=== PATIENT | female | born 1960 | race Caucasian/White ===

== ENCOUNTER 2019-01-28 05:59 | Day surgery (SDC) | payer MEDICAID ==
[2019-01-24 10:43] LABS: CLARITY,URINE CLEAR (Clear); COLOR,URINE YELLOW (Yellow); GLUCOSE, URINE NEGATIVE (Neg); KETONES,URINE NEGATIVE (Neg); LEUKOCYTE ESTERASE ,URINE NEGATIVE (Neg); NITRITES, URINE NEGATIVE (Neg); OCCULT BLOOD,URINE NEGATIVE (Neg); PROTEIN,URINE NEGATIVE (Neg); UROBILINOGEN,URINE 0.2 E.U/dL (0.2-1.0)
[2019-01-24 10:45] LABS: UA COLLECTION TYPE NON-SPECIFIED
[2019-01-24 10:46] LABS: BASOPHILS # (AUTO) 0.1 X10'3 (0-0.2); BASOPHILS % (AUTO) 1.1 % (0-1); EOSINOPHILS # (AUTO) 0.2 X10'3 (0-0.9); EOSINOPHILS % (AUTO) 2.3 % (0-6); LYMPHOCYTES # (AUTO) 1.8 X10'3 (1.1-4.8); LYMPHOCYTES % (AUTO) 24.6 % (21-51); MEAN CORPUSCULAR HEMOGLOBIN 30.9 PG (27.0-31.0); MEAN CORPUSCULAR HGB CONC 34.2 g/dL (33.0-36.5); MEAN CORPUSCULAR VOLUME 90.4 FL (78-98); MEAN PLATELET VOLUME 8.9 FL (7.4-10.4); MONOCYTES # (AUTO) 0.4 X10'3 (0-0.9); MONOCYTES % (AUTO) 5.7 % (2-12); NEUTROPHILS # (AUTO) 4.9 X10'3 (1.8-7.7); NEUTROPHILS % (AUTO) 66.3 % (42-75); PRE OP HEMATOCRIT 46.1 % (35.0-45.0); PRE OP HEMOGLOBIN 15.8 g/dL (12.0-16.0); PRE OP PLATELET COUNT 168 X10'3 (140-440); RED CELL DISTRIBUTION WIDTH 13.5 % (11.5-14.5)
[2019-01-24 10:58] LABS: ALBUMIN 3.7 G/DL (3.4-5.0); ALBUMIN/GLOBULIN RATIO 0.9 (1.1-1.5); ALKALINE PHOSPHATASE 75 IU/L (46-116); BLOOD UREA NITROGEN 13 MG/DL (7-18); BUN/CREATININE RATIO 15.7 (6.6-38.0); CALCIUM 9.5 MG/DL (8.5-10.1); CHLORIDE 102 MMOL/L (99-107); CREATININE 0.83 MG/DL (0.40-0.90); PRE OP ALT 22 U/L (30-65); PRE OP ANION GAP 7 (8-16); PRE OP AST 14 U/L (10-37); PRE OP BILIRUB, TOTAL 0.2 MG/DL (0.0-1.0); PRE OP GLUCOSE 172 MG/DL (70-104); PRE OP POTASSIUM 3.9 MMOL/L (3.4-5.1); PRE OP SODIUM 140 MMOL/L (135-145); TOTAL CARBON DIOXIDE 30.7 MMOL/L (24-32); TOTAL PROTEIN 7.6 G/DL (6.4-8.2); eGFR 71 ML/MIN
[2019-01-28] VITALS (11 sets, daily range): BP systolic 112–164; BP diastolic 54–97
[~2019-01-28] VITALS: Ht 170.2 cm; Wt 95.3 kg
[~2019-01-28 05:59] MED LIST: BECL7.3A INH; CLINDAmcin 900mg/NS 50ml IVPB 50 ML IV ONE; METF1000 PO; famotidine 20mg tablet PO ONE; ringers solution, lacted 1,000 ML IV SCH
[2019-01-28] MEDS ORDERED: iohexol 300 MG/1 ML 50ml polymer ONE (06:52)
[2019-01-28] MEDS ORDERED: albuterol 2.5 MG/3 ML nebule NEB ONE (08:20)
[2019-01-28] MEDS ORDERED: midazolam 2 mg/2 ml injection ONE (08:22)
[2019-01-28] MEDS ORDERED: fentaNYL/PF 50MCG/1 ML 2ML syringe ONE ×2 (08:22→09:06)
[2019-01-28] MEDS ORDERED: sevoflurane 250ml liquid IH ONE (08:50)
[2019-01-28] MEDS ORDERED: gentamicin inj 375 MG in normal saline 100ml IV soln 90.625 ML IV ONE (09:01)
[2019-01-28] MEDS ORDERED: BUPIVAcaine/PF 2.5mg/ml (0.25%) 10ml vial ONE (09:46)
--- NOTE | 2019-01-28 10:16 | NUR ---
Received from OR via NORMA, accompanied by Anesthesiologist DR GUERRERO and report given by Anesthesiolgist. PT DROWSY, DENIES PAIN, ABDOMEN W/3 LAP SITES W/BANDAIDS CDI, BILATERAL FOREARMS W/LIZBETH WRAP COVERING DRSG/INISION CDI. WARMING BLANKET APPLIED FOR TEMP OF 35.8. Addendum: 01/28/19 at 1038 by Moon Sykes RN Amended: Links added. Addendum: 01/28/19 at 1039 by Moon Sykes RN ERROR: LIZBETH WRAP COVERING DRSG/INCISION TO BILATERAL UPPER ARMS, CDI
[2019-01-28] MEDS ORDERED: ringers solution, lacted 1,000 ML IV SCH (10:44)
[2019-01-28] MEDS ORDERED: ondansetron/PF 4mg/2ml inj IV PRN (10:45)
[2019-01-28] MEDS ORDERED: morphine 4 MG/ML inj SYRINge IV PRN ×2 (10:45)
[2019-01-28] MEDS ORDERED: meperidine/PF 25mg/ml syringe IV PRN ×2 (10:45)
[2019-01-28] MEDS ORDERED: proCHLORperazine 10 MG/2 ml inj IV PRN (10:45)
[2019-01-28] MEDS ORDERED: ondansetron/PF 4mg/2ml inj ONE ×2 (10:45→10:55)
[2019-01-28] MEDS: meperidine/PF 25mg/ml syringe IV PRN ×2 (10:53→11:32)
[2019-01-28] MEDS ORDERED: propofol inj 20 ML IV ONE (10:55)
[2019-01-28] MEDS ORDERED: glycopyrrolate 0.2mg/ml inj ONE (10:55)
[2019-01-28] MEDS ORDERED: neostigmine methylsulfate 1 MG/ML 10ml vial ONE (10:55)
[2019-01-28] MEDS ORDERED: rocuronium 10mg/ml inj IV ONE (10:55)
[2019-01-28] MEDS ORDERED: LIDOcaine 2% (20mg/ml) 5ml vial ONE (10:55)
--- NOTE | 2019-01-28 11:36 | NUR ---
Report called to receiving nurse. Transferred via [facility] Belongings . Special Issues communicated to receiving nurse. AWAKE AND ORIENTED. VITALS STABLE. DRESSING DI. STATES PAIN IMPROVING. TO PAS AT THIS TIME.
--- NOTE | 2019-01-28 11:47 | NUR ---
Received report from Juan Luis HELLER from recovery. VSS CHARTED, LAP SITES X3 WITH KAREN OLIVAS. WILL CONTINUE TO MONITOR.
[2019-01-28] MEDS ORDERED: acetaminophen w/codeine (30MG) #3 tablet PO PRN ×2 (12:10)
--- NOTE | 2019-01-28 13:00 | NUR ---
PATIENT DC INSTRUCTIONS GIVEN, PATIENT VERBALIZED UNDERSTANDING. PIV DC'D, CATH TIP INTACT. PATIENT TO PERSONAL VEHICLE WITH ALL PERSONAL BELONGINGS.
== END 2019-01-28 13:00 | disposition home or self-care (01) ==
LOC: PAS 05:59
PROVIDERS: ATTEND Surgery
DX: K80.10 Calculus of gallbladder with chronic cholecystitis without obstruction (principal); D17.22 Benign lipomatous neoplasm of skin and subcutaneous tissue of left arm; D17.21 Benign lipomatous neoplasm of skin and subcutaneous tissue of right arm; I10 Essential (primary) hypertension; E11.9 Type 2 diabetes mellitus without complications; Z88.1 Allergy status to other antibiotic agents; Z88.0 Allergy status to penicillin; Z79.899 Other long term (current) drug therapy
CPT/HCPCS: 24075; 36415; 47562; 80053; 81003; 82948; 85025; 93005; 94640; 94760; J1580; J2001; J2175; J2250; J2405; J2704; J2710; J3010; J3490; J7120; Q9967; A6251; A6449; A7000; J7030

== ENCOUNTER → 2019-02-08 | Emergency (ER) | payer MEDICAID ==
[~2019-02-08] VITALS: Ht 170.2 cm; Wt 96.0 kg
[~2019-02-08] MED LIST changes: -CLINDAmcin 900mg/NS 50ml IVPB 50 ML IV ONE; +MESSAGE TO NURSING PO NR; +METF-950 PO; +OMEP20CA10 PO; +ONDA4TAB6 PO; -famotidine 20mg tablet PO ONE; +famotidine/PF 10 mg/ml inj IV ONE; +iohexol 300mg/ml 100ml inj. ONE; +normal saline 1000ML IV soln IVB ONE; +pantoprazole 40 MG vial IV ONE; -ringers solution, lacted 1,000 ML IV SCH
--- NOTE | 2019-02-08 14:23 | NUR ---
ekg 1415
[2019-02-08 15:05] LABS: BASOPHILS # (AUTO) 0.1 X10'3 (0-0.2); BASOPHILS % (AUTO) 1.1 % (0-1); EOSINOPHILS # (AUTO) 0.2 X10'3 (0-0.9); EOSINOPHILS % (AUTO) 2.6 % (0-6); HEMATOCRIT 44.6 % (35.0-45.0); HEMOGLOBIN 15.2 g/dl (12.0-16.0); LYMPHOCYTES # (AUTO) 1.7 X10'3 (1.1-4.8); LYMPHOCYTES % (AUTO) 21.8 % (21-51); MEAN CORPUSCULAR HGB CONC 34.1 g/dL (33.0-36.5); MEAN CORPUSCULAR VOLUME 90.9 FL (78-98); MEAN PLATELET VOLUME 8.9 FL (7.4-10.4); MONOCYTES # (AUTO) 0.4 X10'3 (0-0.9); MONOCYTES % (AUTO) 4.9 % (2-12); NEUTROPHILS # (AUTO) 5.5 X10'3 (1.8-7.7); NEUTROPHILS % (AUTO) 69.6 % (42-75); PLATELET COUNT 176 X10'3 (140-440); RED CELL DISTRIBUTION WIDTH 13.5 % (11.5-14.5); WHITE BLOOD COUNT 7.9 X10'3 (4.5-11.0)
[2019-02-08 15:24] LABS: ALANINE AMINOTRANSFERASE 52 U/L (12-78); ALBUMIN 3.5 G/DL (3.4-5.0); ALBUMIN/GLOBULIN RATIO 0.9 (1.1-1.5); ALKALINE PHOSPHATASE 89 IU/L (46-116); ANION GAP 10 (8-16); ASPARTATE AMINO TRANSFERASE 76 U/L (10-37); BILIRUBIN,TOTAL 0.5 MG/DL (0.1-1.0); BLOOD UREA NITROGEN 13 MG/DL (7-18); BUN/CREATININE RATIO 14.3 (6.6-38.0); CALCIUM 9.2 MG/DL (8.5-10.1); CHLORIDE 104 MMOL/L (99-107); CREATININE 0.91 MG/DL (0.40-0.90); GLUCOSE 175 MG/DL (70-104); POTASSIUM 3.6 MMOL/L (3.5-5.1); SODIUM 141 MMOL/L (135-145); TOTAL CARBON DIOXIDE 27.1 MMOL/L (24-32); TOTAL PROTEIN 7.3 G/DL (6.4-8.2); eGFR 63 ML/MIN
[2019-02-08 15:32] LABS: LIPASE 227 U/L (73-393); MAGNESIUM 1.8 MG/DL (1.5-2.4)
[2019-02-08 17:50] VITALS: BP 151/72
== END | disposition home or self-care (01) ==
LOC: ER 14:14
DX: R10.13 Epigastric pain (principal); R10.11 Right upper quadrant pain; Z90.49 Acquired absence of other specified parts of digestive tract; Z88.0 Allergy status to penicillin; Z88.2 Allergy status to sulfonamides
CPT/HCPCS: 36415; 71045; 74177; 80053; 83690; 83735; 83880; 84484; 85025; 93005; 96374; 96375; 99284; C9113; J3490; J7030; Q9967

== ENCOUNTER 2019-08-12 19:36 | Emergency (ER) | payer MEDICAID ==
[~2019-08-12] VITALS: Ht 167.6 cm; Wt 79.4 kg
[~2019-08-12 19:36] MED LIST changes: -MESSAGE TO NURSING PO NR; -METF1000 PO; -OMEP20CA10 PO; +OMEP20CA11 PO; -famotidine/PF 10 mg/ml inj IV ONE; -iohexol 300mg/ml 100ml inj. ONE; -normal saline 1000ML IV soln IVB ONE; -pantoprazole 40 MG vial IV ONE
[2019-08-12 20:16] LABS: BASOPHILS % (AUTO) 0.4 % (0-1); EOSINOPHILS # (AUTO) 0.1 X10'3 (0-0.9); EOSINOPHILS % (AUTO) 0.6 % (0-6); HEMATOCRIT 41.1 % (35.0-45.0); LYMPHOCYTES # (AUTO) 0.4 X10'3 (1.1-4.8); LYMPHOCYTES % (AUTO) 4.7 % (21-51); MEAN CORPUSCULAR HEMOGLOBIN 31.2 PG (27.0-31.0); MEAN CORPUSCULAR VOLUME 91.9 FL (78-98); MEAN PLATELET VOLUME 8.8 FL (7.4-10.4); MONOCYTES # (AUTO) 0.1 X10'3 (0-0.9); NEUTROPHILS # (AUTO) 7.8 X10'3 (1.8-7.7); NEUTROPHILS % (AUTO) 93.3 % (42-75); PLATELET COUNT 128 X10'3 (140-440); RED BLOOD COUNT 4.47 X10'6 (4.20-5.60); RED CELL DISTRIBUTION WIDTH 13.8 % (11.5-14.5); WHITE BLOOD COUNT 8.3 X10'3 (4.5-11.0)
[2019-08-12 20:28] LABS: ALANINE AMINOTRANSFERASE 27 U/L (12-78); ALBUMIN 3.5 G/DL (3.4-5.0); ALKALINE PHOSPHATASE 64 IU/L (46-116); ANION GAP 11 (8-16); ASPARTATE AMINO TRANSFERASE 15 U/L (10-37); BILIRUBIN,TOTAL 0.5 MG/DL (0.1-1.0); BLOOD UREA NITROGEN 13 MG/DL (7-18); CALCIUM 8.8 MG/DL (8.5-10.1); CHLORIDE 102 MMOL/L (99-107); CREATININE 1.08 MG/DL (0.40-0.90); GLUCOSE 160 MG/DL (70-104); POTASSIUM 4.2 MMOL/L (3.5-5.1); SODIUM 138 MMOL/L (135-145); TOTAL CARBON DIOXIDE 25.2 MMOL/L (24-32); TOTAL PROTEIN 6.9 G/DL (6.4-8.2); eGFR 52 ML/MIN
[2019-08-12] MEDS ORDERED: morphine 4 MG/ML inj SYRINge IV ONE ×2 (20:50→22:15)
[2019-08-12] MEDS ORDERED: ketorolac tromethamine 15mg/ml inj. IV ONE (20:50)
[2019-08-12] MEDS ORDERED: ondansetron/PF 4mg/2ml inj IV ONE (20:50)
[2019-08-12] MEDS ORDERED: ketorolac trometh. 30mg/ml inj. IV ONE (20:50)
[2019-08-12 21:55] LABS: CLARITY,URINE CLEAR (Clear); COLOR,URINE YELLOW (Yellow); GLUCOSE, URINE NEGATIVE (Neg); KETONES,URINE NEGATIVE (Neg); LEUKOCYTE ESTERASE ,URINE MODERATE (Neg); NITRITES, URINE NEGATIVE (Neg); OCCULT BLOOD,URINE TRACE-INTACT (Neg); PH,URINE 6.5 (4.8-8.0); PROTEIN,URINE NEGATIVE (Neg); UROBILINOGEN,URINE 0.2 E.U/dL (0.2-1.0)
[2019-08-12 21:57] LABS: UA COLLECTION TYPE NON-SPECIFIED
[2019-08-12 22:01] LABS: BACTERIA,URINE FEW /HPF (Neg); RBC,URINE NONE SEEN /HPF (0-2)
[2019-08-12 22:02] LABS: SQUAMOUS EPITHELIAL CELL,UR FEW /LPF (FEW)
[2019-08-12 22:36] LABS: LIPASE 339 U/L (73-393)
[2019-08-12] MEDS ORDERED: CefTRIAXone/D5W-Rocephin 1gm 50 ML IV ONE (23:05)
[2019-08-12 23:17] VITALS: BP 126/70
[2019-08-13] MEDS ORDERED: ONDA4TAB6 PO (00:07)
[2019-08-13] MEDS ORDERED: CEPH500C5 PO (00:07)
[2019-08-13] MEDS ORDERED: HYDR-3965 PO (00:07)
[2019-08-13] MEDS ORDERED: ondansetron/PF 4mg/2ml inj IV ONE (00:20)
[2019-08-13] MEDS ORDERED: HYDR25TA4 PO (12:45)
[2019-08-13] MEDS ORDERED: CEPH500C2 PO (12:47)
[2019-08-13] MEDS ORDERED: NO HOME MEDS (13:11)
== END 2019-08-13 00:29 | disposition home or self-care (01) ==
LOC: ER 19:36
DX: N20.0 Calculus of kidney (principal); N39.0 Urinary tract infection, site not specified; F17.200 Nicotine dependence, unspecified, uncomplicated; Z90.49 Acquired absence of other specified parts of digestive tract; Z79.899 Other long term (current) drug therapy; Z88.0 Allergy status to penicillin; Z88.2 Allergy status to sulfonamides
CPT/HCPCS: 36415; 74176; 80053; 81001; 83605; 83690; 85025; 87040; 87077; 87088; 87186; 96365; 96375; 96376; 99284; J0696; J1885; J2270; J2405

== ENCOUNTER 2019-08-13 07:34 | Inpatient (IN) | payer MEDICAID ==
[~2019-08-13] VITALS: Ht 167.6 cm; Wt 98.2 kg
[~2019-08-13 07:34] MED LIST changes: +CEPH500C5 PO; +HYDR-3965 PO
--- NOTE | 2019-08-13 07:40 | NUR ---
PT ATTEMPTED TO PROVIDE URINE SAMPLE IN RAP AREA BATHROOM BUT UNABLE TO PROVIDE.
[2019-08-13 08:30] LABS: ALANINE AMINOTRANSFERASE 55 U/L (12-78); ALBUMIN 3.2 G/DL (3.4-5.0); ALBUMIN/GLOBULIN RATIO 0.9 (1.1-1.5); ALKALINE PHOSPHATASE 59 IU/L (46-116); ANION GAP 10 (8-16); ASPARTATE AMINO TRANSFERASE 44 U/L (10-37); BILIRUBIN,TOTAL 0.6 MG/DL (0.1-1.0); BLOOD UREA NITROGEN 15 MG/DL (7-18); BUN/CREATININE RATIO 12.8 (6.6-38.0); CALCIUM 8.3 MG/DL (8.5-10.1); CHLORIDE 101 MMOL/L (99-107); CREATININE 1.17 MG/DL (0.40-0.90); GLUCOSE 188 MG/DL (70-104); LIPASE 107 U/L (73-393); POTASSIUM 4.3 MMOL/L (3.5-5.1); SODIUM 137 MMOL/L (135-145); TOTAL CARBON DIOXIDE 26.1 MMOL/L (24-32); TOTAL PROTEIN 6.7 G/DL (6.4-8.2); eGFR 48 ML/MIN
[2019-08-13 08:44] LABS: BASOPHILS # (AUTO) 0.1 X10'3 (0-0.2); BASOPHILS % (AUTO) 0.4 % (0-1); EOSINOPHILS % (AUTO) 0 % (0-6); HEMATOCRIT 40.2 % (35.0-45.0); HEMOGLOBIN 13.6 g/dl (12.0-16.0); LYMPHOCYTES # (AUTO) 0.4 X10'3 (1.1-4.8); LYMPHOCYTES % (AUTO) 2.8 % (21-51); MEAN CORPUSCULAR HEMOGLOBIN 31.2 PG (27.0-31.0); MEAN CORPUSCULAR HGB CONC 33.8 g/dL (33.0-36.5); MEAN CORPUSCULAR VOLUME 92.3 FL (78-98); MEAN PLATELET VOLUME 9.7 FL (7.4-10.4); MONOCYTES # (AUTO) 0.3 X10'3 (0-0.9); MONOCYTES % (AUTO) 2.5 % (2-12); NEUTROPHILS # (AUTO) 12.2 X10'3 (1.8-7.7); NEUTROPHILS % (AUTO) 94.3 % (42-75); PLATELET COUNT 104 X10'3 (140-440); RED BLOOD COUNT 4.35 X10'6 (4.20-5.60); RED CELL DISTRIBUTION WIDTH 13.9 % (11.5-14.5)
[2019-08-13] MEDS ORDERED: metoclopramide 5 mg/ml inj IV ONE (09:15)
[2019-08-13] MEDS ORDERED: normal saline 1000ML IV soln IVB ONE (09:15)
[2019-08-13] MEDS ORDERED: diphenhydrAMINE 50 mg/ml inj IV ONE (09:15)
[2019-08-13] MEDS ORDERED: pantoprazole 40 MG vial IV ONE (09:20)
[2019-08-13 09:46] LABS: CLARITY,URINE CLOUDY (Clear); COLOR,URINE YELLOW (Yellow); GLUCOSE, URINE NEGATIVE (Neg); KETONES,URINE NEGATIVE (Neg); LEUKOCYTE ESTERASE ,URINE MODERATE (Neg); NITRITES, URINE NEGATIVE (Neg); OCCULT BLOOD,URINE SMALL (Neg); PROTEIN,URINE 30 mg/dl (Neg); UROBILINOGEN,URINE 0.2 E.U/dL (0.2-1.0)
[2019-08-13 09:49] LABS: UA COLLECTION TYPE NON-SPECIFIED
[2019-08-13 09:54] LABS: SQUAMOUS EPITHELIAL CELL,UR MANY /LPF (FEW)
[2019-08-13 09:55] LABS: WBC,URINE TNTC /HPF (0-4)
[2019-08-13] MEDS ORDERED: CefTRIAXone/D5W-Rocephin 1gm 50 ML IV ONE (09:55)
[2019-08-13 09:56] LABS: BACTERIA,URINE 3+ /HPF (Neg); RBC,URINE 0-2 /HPF (0-2)
[2019-08-13 09:58] LABS: WBC CLUMPS,URINE FEW /HPF (NEGATIVE)
--- NOTE | 2019-08-13 10:26 | NUR ---
PT TO CT VIA [facility]
--- NOTE | 2019-08-13 10:39 | NUR ---
PT SLEEPING LAYING ON HER LEFT SIDE, RESPIRATIONS EVEN AND UNLABORED NO DISTRESS NOTED AT THIS TIME.
--- NOTE | 2019-08-13 10:50 | NUR ---
TELE NEURO HAS BEEN INITIATED.
--- NOTE | 2019-08-13 11:43 | NUR ---
TELE NEURO CONSULT IN PROCESS
[2019-08-13] MEDS ORDERED: aspirin 81mg tab.chew PO ONE ×2 (12:10→15:40)
[2019-08-13] MEDS ORDERED: HYDR25TA4 PO (12:45)
[2019-08-13] MEDS ORDERED: CEPH500C2 PO (12:47)
[2019-08-13] MEDS ORDERED: NO HOME MEDS (13:11)
--- NOTE | 2019-08-13 13:11 | NUR ---
PT TO MRI
--- NOTE | 2019-08-13 13:44 | NUR ---
PT BACK MRI
--- NOTE | 2019-08-13 14:45 | NUR ---
IMAGES SHARED TO [facility], DR. MARTINI WILL REVIEW THEM
[2019-08-13] MEDS ORDERED: normal saline 1000ml 1,000 ML IV SCH (16:01)
[2019-08-13] MEDS ORDERED: potassium Cl 20 mEq SR tablet PO PRN ×2 (16:05)
[2019-08-13] MEDS ORDERED: morphine 2 MG/ML inj. syringe IV PRN (16:05)
[2019-08-13] MEDS ORDERED: ondansetron/PF 4mg/2ml inj IV PRN (16:05)
[2019-08-13] MEDS ORDERED: magnesium 2GM in 50ml NS 50 ML IV PRN (16:05)
[2019-08-13] MEDS ORDERED: potassium CL 10mEq/100ml bag 100 ML IV PRN ×2 (16:05)
[2019-08-13] MEDS ORDERED: magnesium 4gm in 100ml NS 100 ML IV PRN (16:05)
[2019-08-13] MEDS ORDERED: magnesium Cl slow-release 64mg tablet PO PRN (16:05)
[2019-08-13] MEDS: levoFLOXACIN-Levaquin 500mg/D5 100 ML IV SCH (17:12)
--- NOTE | 2019-08-13 18:53 | NUR ---
Patient in room . I have received report from ARRON Suh and had the opportunity to ask questions and assume patient care.
[2019-08-13] MEDS ORDERED: LORazepam 2 mg/ml vial IV ONE (18:55)
[2019-08-13 19:19] VITALS: BP 132/55
[2019-08-13] MEDS: normal saline 1000ml 1,000 ML IV SCH (21:31)
[2019-08-13 22:00] VITALS: BP 117/45
[2019-08-14] VITALS (19 sets, daily range): BP systolic 124–173; BP diastolic 49–80
[2019-08-14] MEDS ORDERED: LORazepam 2 mg/ml vial IV PRN (03:10)
[2019-08-14 06:26] LABS: BASOPHILS % (AUTO) 0.7 % (0-1); EOSINOPHILS % (AUTO) 0.7 % (0-6); HEMOGLOBIN 12.4 g/dl (12.0-16.0); LYMPHOCYTES # (AUTO) 0.9 X10'3 (1.1-4.8); LYMPHOCYTES % (AUTO) 13.5 % (21-51); MEAN CORPUSCULAR HEMOGLOBIN 31.3 PG (27.0-31.0); MEAN CORPUSCULAR HGB CONC 33.5 g/dL (33.0-36.5); MEAN CORPUSCULAR VOLUME 93.3 FL (78-98); MEAN PLATELET VOLUME 9.7 FL (7.4-10.4); MONOCYTES # (AUTO) 0.4 X10'3 (0-0.9); MONOCYTES % (AUTO) 5.8 % (2-12); NEUTROPHILS # (AUTO) 5.1 X10'3 (1.8-7.7); NEUTROPHILS % (AUTO) 79.3 % (42-75); PLATELET COUNT 78 X10'3 (140-440); RED BLOOD COUNT 3.97 X10'6 (4.20-5.60); RED CELL DISTRIBUTION WIDTH 13.8 % (11.5-14.5); WHITE BLOOD COUNT 6.5 X10'3 (4.5-11.0)
--- NOTE | 2019-08-14 06:30 | NUR ---
i HAVE RECEIVED PATIENT REPORT FROM DAVID HELLER
--- NOTE | 2019-08-14 06:39 | NUR ---
Patient in room ORTHO 4007. I have received report from Anabela HELLER and had the opportunity to ask questions and assume patient care.
--- NOTE | 2019-08-14 06:43 | NUR ---
Problems reprioritized. Patient report given, questions answered & plan of care reviewed with ARRON Nunes.
[2019-08-14] MEDS: budesonide 0.5mg/2ml UD nebule IH SCH ×2 (07:04→20:57)
[2019-08-14 07:10] LABS: ALBUMIN 2.5 G/DL (3.4-5.0); ANION GAP 7 (8-16); BLOOD UREA NITROGEN 8 MG/DL (7-18); BUN/CREATININE RATIO 9.2 (6.6-38.0); CALCIUM 8.1 MG/DL (8.5-10.1); CHLORIDE 108 MMOL/L (99-107); CHOL/HDL RATIO 7.2 (0.00-4.99); CHOLESTEROL 208 MG/DL (0-200); CREATININE 0.87 MG/DL (0.40-0.90); GLUCOSE 155 MG/DL (70-104); HDL CHOLESTEROL 29 MG/DL (35-60); LDL CHOLESTEROL 139 MG/DL (50-100); MAGNESIUM 1.9 MG/DL (1.5-2.4); POTASSIUM 4.3 MMOL/L (3.5-5.1); SODIUM 140 MMOL/L (135-145); TOTAL CARBON DIOXIDE 24.8 MMOL/L (24-32); TRIGLYCERIDES 161 MG/DL (20-135); eGFR 67 ML/MIN
[2019-08-14] MEDS: normal saline 1000ml 1,000 ML IV SCH ×3 (07:21→21:34)
[2019-08-14] MEDS: levoFLOXACIN-Levaquin 500mg/D5 100 ML IV SCH (07:49)
[2019-08-14] MEDS: HYDROchlorothiazide 25mg tablet PO SCH (07:49)
[2019-08-14] MEDS: K and/or MAG REPLACEMENT MC SCH (08:00)
[2019-08-14] MEDS ORDERED: phenylephrine inj 20 MG in normal saline 250ml IV soln 250 ML IV PRN (11:55)
[2019-08-14] MEDS ORDERED: nitroGLYCERIN-Tridil 50MG/D5W 250 ML IV PRN (11:55)
--- NOTE | 2019-08-14 12:03 | NUR ---
Problems reprioritized. Patient report given, questions answered & plan of care reviewed with Anabela HELLER.
--- NOTE | 2019-08-14 12:28 | NUR ---
PATIENT REPORT GIVEN TO MORIS HELLERMUD TRUCKER
[2019-08-14] MEDS ORDERED: LIDOcaine 1% (10mg/ml) 2ml vial ONE (12:30)
[2019-08-14] MEDS ORDERED: heparin 10,000 units/1 ML INJ ONE (12:50)
[2019-08-14 13:42] LABS: HEMOGLOBIN A1C 7.1 % (4.5-6.2)
[2019-08-14] MEDS ORDERED: LIDOcaine 1% 30ml preserv. free vial ONE (13:48)
[2019-08-14] MEDS ORDERED: midazolam 2 mg/2 ml injection ONE (13:53)
[2019-08-14] MEDS ORDERED: fentaNYL/PF 50MCG/1 ML 2ML syringe ONE ×2 (13:53→15:23)
[2019-08-14] MEDS ORDERED: hydrALAZINE 20mg/ml inj. IV PRN (14:05)
[2019-08-14] MEDS ORDERED: ringers solution, lacted 1,000 ML IV SCH (14:05)
[2019-08-14] MEDS ORDERED: fentaNYL/PF 50MCG/1 ML 2ML syringe IV PRN ×2 (14:05)
[2019-08-14] MEDS ORDERED: labetalol 20mg/4ml (5mg/ml) syringe IV PRN (14:05)
[2019-08-14] MEDS ORDERED: nitroPRUSSIDE in NS 100 ML IV SCH (14:05)
[2019-08-14] MEDS ORDERED: ondansetron/PF 4mg/2ml inj IV PRN (14:05)
[2019-08-14] MEDS ORDERED: phenylephrine inj 20 MG in normal saline 250ml IV soln 248 ML IV SCH (14:05)
[2019-08-14] MEDS ORDERED: morphine 4 MG/ML inj SYRINge IV PRN ×2 (14:05)
[2019-08-14] MEDS ORDERED: dexamethasone sod phosphate 10mg/ml inj ONE (14:10)
[2019-08-14] MEDS ORDERED: sevoflurane 250ml liquid IH ONE (14:10)
[2019-08-14] MEDS ORDERED: nitroPRUSSIDE 20mg/NS 100mL (0.2mg/mL) VIAL IV ONE (14:10)
[2019-08-14] MEDS ORDERED: propofol inj 20 ML IV ONE (14:12)
[2019-08-14] MEDS ORDERED: LIDOcaine 2% (20mg/ml) 5ml vial ONE (14:12)
[2019-08-14] MEDS ORDERED: heparin 1,000unit/ml 10ml vial 10 ML ONE (14:51)
[2019-08-14] MEDS ORDERED: ondansetron/PF 4mg/2ml inj ONE (15:02)
[2019-08-14] MEDS ORDERED: neostigmine methylsulfate 1 MG/ML 10ml vial ONE (15:04)
[2019-08-14] MEDS ORDERED: glycopyrrolate 0.2mg/ml inj ONE (15:04)
[2019-08-14] MEDS ORDERED: labetalol 20mg/4ml (5mg/ml) syringe IV ONE (15:34)
--- NOTE | 2019-08-14 16:27 | NUR ---
DM Consult: A1C 7.1; pt s/p endarterectomy and will need DM ed once stable post-op. Addendum: 08/14/19 at [address] Amended: Links added.
--- NOTE | 2019-08-14 16:43 | NUR ---
Patient coming to CICU 2016. I have received report from Maurice HELLER and had the opportunity to ask questions and assume patient care.
--- NOTE | 2019-08-14 16:50 | NUR ---
ALL CRITERIA FOR TRANSFER TO THE FLOOR HAS BEEN ACHIEVED. VSS. BED LOW, CALL LIGHT AND VS. SET IN PLACE. RN PRESENT TO ACCEPT CARE. PATIENT RESTING COMFORTABLY IN BED. BELONGINGS SENT WITH PATIENT. DRESSINGS CDI. ARRON CAUSEY PRESENT TO ACCEPT CARE. Addendum: 08/14/19 at 1658 by Maurice Burr RN, RN Amended: Links added.
[2019-08-14] MEDS: nitroPRUSSIDE in NS 100 ML IV PRN ×4 (17:10→22:56)
[2019-08-14] MEDS ORDERED: naloxone 0.4 mg/ml inj IV PRN (18:00)
[2019-08-14] MEDS ORDERED: CADD PCA waste documentation MC SCH (18:00)
[2019-08-14] MEDS: HYDROmorphone/NS 1 mg/ml CADD 50 ML IV SCH ×3 (18:11→23:00)
--- NOTE | 2019-08-14 18:22 | NUR ---
Problems reprioritized. Patient report given, questions answered & plan of care reviewed with Roxana HELLER.
[2019-08-15] VITALS (15 sets, daily range): BP systolic 120–187; BP diastolic 51–89
[2019-08-15] MEDS: HYDROmorphone/NS 1 mg/ml CADD 50 ML IV SCH ×6 (01:00→15:00)
[2019-08-15] MEDS: nitroPRUSSIDE in NS 100 ML IV PRN (03:33)
--- NOTE | 2019-08-15 06:15 | NUR ---
Patient in room CICU 2016. I have received report from nail expert and had the opportunity to ask questions and assume patient care.
[2019-08-15] MEDS: K and/or MAG REPLACEMENT MC SCH (08:00)
[2019-08-15 08:48] LABS: BASOPHILS % (AUTO) 0.1 % (0-1); EOSINOPHILS % (AUTO) 0 % (0-6); HEMATOCRIT 35.3 % (35.0-45.0); HEMOGLOBIN 12.1 g/dl (12.0-16.0); LYMPHOCYTES # (AUTO) 0.8 X10'3 (1.1-4.8); MEAN CORPUSCULAR HEMOGLOBIN 31.2 PG (27.0-31.0); MEAN CORPUSCULAR HGB CONC 34.2 g/dL (33.0-36.5); MEAN CORPUSCULAR VOLUME 91.1 FL (78-98); MONOCYTES # (AUTO) 0.4 X10'3 (0-0.9); MONOCYTES % (AUTO) 5.1 % (2-12); NEUTROPHILS # (AUTO) 6.5 X10'3 (1.8-7.7); NEUTROPHILS % (AUTO) 84.8 % (42-75); PLATELET COUNT 76 X10'3 (140-440); RED BLOOD COUNT 3.87 X10'6 (4.20-5.60); RED CELL DISTRIBUTION WIDTH 13.4 % (11.5-14.5); WHITE BLOOD COUNT 7.7 X10'3 (4.5-11.0)
[2019-08-15] MEDS: budesonide 0.5mg/2ml UD nebule IH SCH (08:50)
[2019-08-15 08:57] LABS: BLOOD UREA NITROGEN 7 MG/DL (7-18); BUN/CREATININE RATIO 10.1 (6.6-38.0); CHLORIDE 105 MMOL/L (99-107); CREATININE 0.69 MG/DL (0.40-0.90); GLUCOSE 168 MG/DL (70-104); POTASSIUM 3.9 MMOL/L (3.5-5.1); SODIUM 138 MMOL/L (135-145); eGFR 87 ML/MIN
[2019-08-15 09:05] LABS: ALBUMIN 2.7 G/DL (3.4-5.0); ANION GAP 8 (8-16); CALCIUM 8.4 MG/DL (8.5-10.1); TOTAL CARBON DIOXIDE 25.5 MMOL/L (24-32)
[2019-08-15] MEDS: HYDROchlorothiazide 25mg tablet PO SCH (09:05)
[2019-08-15] MEDS: levoFLOXACIN-Levaquin 500mg/D5 100 ML IV SCH (09:05)
--- NOTE | 2019-08-15 10:30 | NUR ---
Plan is to discharge later today if BP remains stable off nipride. Will arrange SOC phone consult today for advice regarding anticoagulation in pt with + stroke and s/p RICTEA. Dr Resendez was also informed and agrees with need for consult with SOC. POC discussed with bedside RN, Lilly. Dr Greene requests pt to receive ASA today. He also concurs that Lipitor can be given as well.
[2019-08-15] MEDS: normal saline 1000ml 1,000 ML IV SCH (13:30)
[2019-08-15] MEDS ORDERED: ASPI-1 PO (14:54)
[2019-08-15] MEDS ORDERED: ATOR80TA PO (14:55)
--- NOTE | 2019-08-15 15:10 | NUR ---
Discharged to home Called meds to [facility] pharmacy
--- NOTE | 2019-08-15 17:40 | NUR ---
I have reviewed and agree with all medications administered and interventions performed by [facility] Student, Ronnie Isaacs.
[2019-08-15] MEDS ORDERED: lactobacillus rhamnosus 10,000 MMU CELLS/CAPSULE PO SCH (20:00)
[2019-08-16] MEDS ORDERED: levoFLOXACIN 500mg tablet PO SCH (11:00)
== END 2019-08-15 16:34 | disposition home or self-care (01) | DRG 24 ==
LOC: ER 07:35 → ORTHO 4S 19:09 → CICU 2S 08-14 16:56
PROVIDERS: ADMIT Internal Medicine; ATTEND Surgery
PROC: 03UK0KZ Supplement Right Internal Carotid Artery with Nonautologous Tissue Substitute, Open Approach (ICD-10-PCS; 2019-08-14)
PROC: 03CK0ZZ Extirpation of Matter from Right Internal Carotid Artery, Open Approach (ICD-10-PCS; principal; 2019-08-14 14:10)
DX: I65.21 Occlusion and stenosis of right carotid artery (principal); I63.9 Cerebral infarction, unspecified; E11.9 Type 2 diabetes mellitus without complications; F17.210 Nicotine dependence, cigarettes, uncomplicated; I10 Essential (primary) hypertension; N39.0 Urinary tract infection, site not specified; R11.2 Nausea with vomiting, unspecified; Z87.442 Personal history of urinary calculi; Z90.710 Acquired absence of both cervix and uterus; Z90.49 Acquired absence of other specified parts of digestive tract; Z88.0 Allergy status to penicillin; Z88.2 Allergy status to sulfonamides; Z79.899 Other long term (current) drug therapy; Z79.84 Long term (current) use of oral hypoglycemic drugs
CPT/HCPCS: 36415; 70450; 70544; 70547; 70551; 71045; 80048; 80053; 80061; 81001; 82948; 83036; 83605; 83690; 83735; 85025; 85610; 87081; 93005; 93306; 93880; 94640; 94760; 95813; 95816; 96365; 96375; 97161; 97530; 99291; A4618; A6258; A7000; C1768; C9113; G0378; J0696; J1100; J1170; J1200; J1644; J1956; J2001; J2060; J2250; J2370; J2405; J2704; J2710; J2765; J3010; J3490; J7030; J7040; J7050; J7120; J7626

== ENCOUNTER 2021-01-25 14:13 | Emergency (ER) | payer MEDICAID ==
[~2021-01-25] VITALS: Ht 172.7 cm; Wt 93.2 kg
[~2021-01-25 14:13] MED LIST changes: +CEPH500C2 PO; -CEPH500C5 PO; -HYDR-3965 PO; +HYDR25TA4 PO; -OMEP20CA11 PO; -ONDA4TAB6 PO
[2021-01-25 14:30] VITALS: BP 177/86
[2021-01-25 15:26] LABS: BASOPHILS # (AUTO) 0.1 X10'3 (0-0.2); BASOPHILS % (AUTO) 1.2 % (0-1); EOSINOPHILS # (AUTO) 0.2 X10'3 (0-0.9); EOSINOPHILS % (AUTO) 2.4 % (0-6); HEMATOCRIT 46.8 % (35.0-45.0); HEMOGLOBIN 15.6 g/dl (12.0-16.0); LYMPHOCYTES # (AUTO) 1.7 X10'3 (1.1-4.8); LYMPHOCYTES % (AUTO) 22.7 % (21-51); MEAN CORPUSCULAR HEMOGLOBIN 31.1 PG (27.0-31.0); MEAN CORPUSCULAR HGB CONC 33.4 g/dL (33.0-36.5); MEAN PLATELET VOLUME 9.1 FL (7.4-10.4); MONOCYTES # (AUTO) 0.4 X10'3 (0-0.9); NEUTROPHILS # (AUTO) 5.1 X10'3 (1.8-7.7); NEUTROPHILS % (AUTO) 68.7 % (42-75); PLATELET COUNT 192 X10'3 (140-440); RED BLOOD COUNT 5.03 X10'6 (4.20-5.60); RED CELL DISTRIBUTION WIDTH 13.5 % (11.5-14.5); WHITE BLOOD COUNT 7.5 X10'3 (4.5-11.0)
[2021-01-25 15:40] LABS: ALANINE AMINOTRANSFERASE 22 U/L (12-78); ALBUMIN 3.6 G/DL (3.4-5.0); ALBUMIN/GLOBULIN RATIO 0.9 (1.1-1.5); ALKALINE PHOSPHATASE 73 IU/L (46-116); ANION GAP 9 (8-16); ASPARTATE AMINO TRANSFERASE 11 U/L (10-37); BILIRUBIN,TOTAL 0.2 MG/DL (0.1-1.0); BLOOD UREA NITROGEN 14 MG/DL (7-18); BUN/CREATININE RATIO 14.4 (6.6-38.0); CALCIUM 9.5 MG/DL (8.5-10.1); CHLORIDE 101 MMOL/L (99-107); CREATININE 0.97 MG/DL (0.40-0.90); GLUCOSE 189 MG/DL (70-104); SODIUM 140 MMOL/L (135-145); TOTAL CARBON DIOXIDE 30.5 MMOL/L (24-32); TOTAL PROTEIN 7.5 G/DL (6.4-8.2); eGFR 59 ML/MIN
--- NOTE | 2021-01-25 18:12 | NUR ---
Dr. Ordonez attempted to call patient at listed number at which she was given [phone]. Dr Ordonez called other number and unable to get a hold of patient.
== END 2021-01-25 18:14 | disposition left against medical advice (07) ==
LOC: ER 14:14
DX: R42 Dizziness and giddiness (principal); Z53.21 Procedure and treatment not carried out due to patient leaving prior to being seen by health care provider
CPT/HCPCS: 36415; 80053; 83880; 84484; 85025; 93005

== ENCOUNTER 2021-07-22 15:10 | Outpatient (CLI) | payer MEDICAID ==
[2021-07-22] MEDS ORDERED: PANT-47 PO (16:34)
[2021-07-22] MEDS ORDERED: CHOL500050 PO (16:34)
[2021-07-22] MEDS ORDERED: ASPI-10 PO (16:34)
[2021-07-22] MEDS ORDERED: ATOR10TA PO (16:34)
[2021-07-22] MEDS ORDERED: LISI40TA13 PO (16:34)
[2021-07-22 17:24] LABS: HEMOGLOBIN A1C 7.4 % (4.5-6.2)
[2021-07-22 17:26] LABS: PRE OP PROTIME 10.6 SECONDS (9.0-12.0)
[2021-07-22 17:28] LABS: ALBUMIN 3.5 G/DL (3.4-5.0); ALBUMIN/GLOBULIN RATIO 0.9 (1.1-1.5); ALKALINE PHOSPHATASE 88 IU/L (46-116); BLOOD UREA NITROGEN 15 MG/DL (7-18); BUN/CREATININE RATIO 16.9 (6.6-38.0); CHLORIDE 106 MMOL/L (99-107); CREATININE 0.89 MG/DL (0.40-0.90); PRE OP ALT 32 U/L (30-65); PRE OP ANION GAP 6 (8-16); PRE OP AST 18 U/L (10-37); PRE OP BILIRUB, TOTAL 0.4 MG/DL (0.0-1.0); PRE OP GLUCOSE 197 MG/DL (70-104); PRE OP POTASSIUM 3.8 MMOL/L (3.4-5.1); PRE OP SODIUM 144 MMOL/L (135-145); TOTAL CARBON DIOXIDE 31.7 MMOL/L (24-32); TOTAL PROTEIN 7.4 G/DL (6.4-8.2); eGFR 65 ML/MIN
[2021-07-23 10:03] LABS: BASOPHILS # (AUTO) 0.1 X10'3 (0-0.2); BASOPHILS % (AUTO) 1.1 % (0-1); EOSINOPHILS # (AUTO) 0.3 X10'3 (0-0.9); EOSINOPHILS % (AUTO) 3.4 % (0-6); LYMPHOCYTES # (AUTO) 1.4 X10'3 (1.1-4.8); LYMPHOCYTES % (AUTO) 18.9 % (21-51); MEAN CORPUSCULAR HEMOGLOBIN 30.6 PG (27.0-31.0); MEAN CORPUSCULAR HGB CONC 33.2 g/dL (33.0-36.5); MEAN CORPUSCULAR VOLUME 92.1 FL (78-98); MEAN PLATELET VOLUME 9.6 FL (7.4-10.4); MONOCYTES # (AUTO) 0.3 X10'3 (0-0.9); MONOCYTES % (AUTO) 4.6 % (2-12); NEUTROPHILS # (AUTO) 5.5 X10'3 (1.8-7.7); PRE OP HEMATOCRIT 42.9 % (35.0-45.0); PRE OP HEMOGLOBIN 14.2 g/dL (12.0-16.0); PRE OP PLATELET COUNT 177 X10'3 (140-440); RED BLOOD COUNT 4.66 X10'6 (4.20-5.60); RED CELL DISTRIBUTION WIDTH 14.4 % (11.5-14.5)
[2021-07-26] MEDS ORDERED: midazolam 1 mg/ML 2ml injection ONE (11:06)
[2021-07-26] MEDS ORDERED: fentaNYL/PF 50MCG/1 ML 2ML syringe ONE (11:06)
[2021-07-26] MEDS ORDERED: LIDOcaine 2% (20mg/ml) 5ml vial ONE (11:07)
[2021-07-26] MEDS ORDERED: ondansetron/PF 4mg/2ml inj ONE (11:07)
[2021-07-26] MEDS ORDERED: propofol inj 20 ML IV ONE (11:07)
[2021-07-26] MEDS ORDERED: dexamethasone sod phosphate 4mg/ml inj. ONE (11:07)
[2021-07-26] MEDS ORDERED: ePHEDrine 50MG/ML INJ. ONE (11:29)
== END 2021-07-22 23:59 | disposition home or self-care (01) ==
LOC: PRE-OP 15:10 → EDSTATUS 08-08 11:15
PROVIDERS: ATTEND Surgery
DX: Z01.812 Encounter for preprocedural laboratory examination (principal); Z20.822 Contact with and (suspected) exposure to COVID-19; R10.9 Unspecified abdominal pain
CPT/HCPCS: 36415; 80053; 83036; 85025; 85610; 85730; 86885; 86900; 86901; 87081; U0003; U0005; J1100; J2001; J2250; J2405; J2704; J3010

== ENCOUNTER 2021-07-25 04:42 | Emergency (ER) | payer MEDICAID ==
[~2021-07-25] VITALS: Ht 165.1 cm; Wt 90.0 kg
[~2021-07-25 04:42] MED LIST changes: +ASPI-10 PO; +ATOR10TA PO; -CEPH500C2 PO; +CHOL500050 PO; -HYDR25TA4 PO; +LISI40TA13 PO; +PANT-47 PO
[2021-07-25 04:46] VITALS: BP 154/74
[2021-07-25 05:35] LABS: ALANINE AMINOTRANSFERASE 28 U/L (12-78); ALBUMIN 3.4 G/DL (3.4-5.0); ALBUMIN/GLOBULIN RATIO 0.9 (1.1-1.5); ALKALINE PHOSPHATASE 88 IU/L (46-116); ANION GAP 11 (8-16); ASPARTATE AMINO TRANSFERASE 15 U/L (10-37); BILIRUBIN,TOTAL 0.7 MG/DL (0.1-1.0); BLOOD UREA NITROGEN 17 MG/DL (7-18); BUN/CREATININE RATIO 14.3 (6.6-38.0); CALCIUM 8.8 MG/DL (8.5-10.1); CHLORIDE 103 MMOL/L (99-107); CREATININE 1.19 MG/DL (0.40-0.90); GLUCOSE 212 MG/DL (70-104); LIPASE 114 U/L (73-393); POTASSIUM 3.6 MMOL/L (3.5-5.1); SODIUM 141 MMOL/L (135-145); TOTAL CARBON DIOXIDE 26.7 MMOL/L (24-32); TOTAL PROTEIN 7.4 G/DL (6.4-8.2); eGFR 46 ML/MIN
[2021-07-25 05:41] LABS: EOSINOPHILS # (AUTO) 0.1 X10'3 (0-0.9); EOSINOPHILS % (AUTO) 0.6 % (0-6); LYMPHOCYTES # (AUTO) 0.8 X10'3 (1.1-4.8); MONOCYTES # (AUTO) 0.6 X10'3 (0-0.9); NEUTROPHILS # (AUTO) 9.2 X10'3 (1.8-7.7)
[2021-07-25 05:42] LABS: BASOPHILS % (AUTO) 0.4 % (0-1); HEMATOCRIT 42.2 % (35.0-45.0); HEMOGLOBIN 14.2 g/dl (12.0-16.0); LYMPHOCYTES % (AUTO) 7.5 % (21-51); MEAN CORPUSCULAR HEMOGLOBIN 30.5 PG (27.0-31.0); MEAN CORPUSCULAR HGB CONC 33.5 g/dL (33.0-36.5); MEAN PLATELET VOLUME 9.4 FL (7.4-10.4); MONOCYTES % (AUTO) 5.5 % (2-12); PLATELET COUNT 153 X10'3 (140-440); RED BLOOD COUNT 4.64 X10'6 (4.20-5.60); RED CELL DISTRIBUTION WIDTH 13.8 % (11.5-14.5); WHITE BLOOD COUNT 10.7 X10'3 (4.5-11.0)
[2021-07-25] MEDS ORDERED: BUPR300T86 PO (23:07)
[2021-07-25] MEDS ORDERED: ATOR-2 PO (23:07)
[2021-07-25] MEDS ORDERED: HYDR-3927 PO (23:07)
[2021-07-25] MEDS ORDERED: LISI10TA27 PO (23:07)
[2021-07-25] MEDS ORDERED: CHOL500050 PO (23:10)
== END 2021-07-25 16:13 | disposition left against medical advice (07) ==
LOC: ER 04:42
DX: R10.9 Unspecified abdominal pain (principal); Z20.822 Contact with and (suspected) exposure to COVID-19
CPT/HCPCS: 80053; 83690; 85025; 87635; 99283; C9803

== ENCOUNTER 2021-07-25 16:08 | Inpatient (IN) | payer MEDICAID ==
[~2021-07-25] VITALS: Ht 165.1 cm; Wt 90.9 kg
[2021-07-25] MEDS ORDERED: normal saline 1000ML IV soln IV ONE (16:40)
[2021-07-25] MEDS ORDERED: acetaminophen 325mg tablet PO STA (16:40)
[2021-07-25 17:54] LABS: BASOPHILS % (AUTO) 0.2 % (0-1); EOSINOPHILS % (AUTO) 0 % (0-6); HEMOGLOBIN 12.9 g/dl (12.0-16.0); LYMPHOCYTES # (AUTO) 0.6 X10'3 (1.1-4.8); LYMPHOCYTES % (AUTO) 4.5 % (21-51); MEAN CORPUSCULAR HEMOGLOBIN 30.1 PG (27.0-31.0); MEAN CORPUSCULAR HGB CONC 33.1 g/dL (33.0-36.5); MEAN CORPUSCULAR VOLUME 90.9 FL (78-98); MEAN PLATELET VOLUME 9.3 FL (7.4-10.4); MONOCYTES # (AUTO) 0.7 X10'3 (0-0.9); MONOCYTES % (AUTO) 5.7 % (2-12); NEUTROPHILS # (AUTO) 11.4 X10'3 (1.8-7.7); NEUTROPHILS % (AUTO) 89.6 % (42-75); PLATELET COUNT 120 X10'3 (140-440); RED BLOOD COUNT 4.29 X10'6 (4.20-5.60); RED CELL DISTRIBUTION WIDTH 13.9 % (11.5-14.5); WHITE BLOOD COUNT 12.7 X10'3 (4.5-11.0)
[2021-07-25 18:03] LABS: ALANINE AMINOTRANSFERASE 18 U/L (12-78); ALBUMIN/GLOBULIN RATIO 0.8 (1.1-1.5); ALKALINE PHOSPHATASE 73 IU/L (46-116); ANION GAP 12 (8-16); ASPARTATE AMINO TRANSFERASE 11 U/L (10-37); BILIRUBIN,TOTAL 0.9 MG/DL (0.1-1.0); BLOOD UREA NITROGEN 16 MG/DL (7-18); BUN/CREATININE RATIO 12.9 (6.6-38.0); CALCIUM 8.4 MG/DL (8.5-10.1); CHLORIDE 105 MMOL/L (99-107); CREATININE 1.24 MG/DL (0.40-0.90); GLUCOSE 288 MG/DL (70-104); POTASSIUM 3.5 MMOL/L (3.5-5.1); SODIUM 139 MMOL/L (135-145); TOTAL PROTEIN 6.6 G/DL (6.4-8.2); eGFR 44 ML/MIN
[2021-07-25] MEDS ORDERED: ketorolac trometh. 30mg/ml inj. IV ONE (19:50)
[2021-07-25 20:42] LABS: CLARITY,URINE SLIGHTLY CLOUDY (Clear); COLOR,URINE YELLOW (Yellow); GLUCOSE, URINE NEGATIVE (Neg); KETONES,URINE TRACE mg/dl (Neg); LEUKOCYTE ESTERASE ,URINE MODERATE (Neg); NITRITES, URINE POSITIVE (Neg); OCCULT BLOOD,URINE MODERATE (Neg); PROTEIN,URINE 100 mg/dl (Neg)
[2021-07-25 20:44] LABS: UA COLLECTION TYPE STRAIGHT CATH
[2021-07-25 20:45] LABS: WBC,URINE 20-30 /HPF (0-4)
[2021-07-25 20:46] LABS: BACTERIA,URINE 2+ /HPF (Neg); RBC,URINE 0-2 /HPF (0-2); SQUAMOUS EPITHELIAL CELL,UR FEW /LPF (FEW); WBC CLUMPS,URINE FEW /HPF (NEGATIVE)
[2021-07-25] MEDS ORDERED: CefTRIAXone/D5W-Rocephin 1gm 50 ML IV ONE (20:50)
[2021-07-25] MEDS ORDERED: temazepam 15mg capsule PO PRN (21:00)
[2021-07-25] MEDS ORDERED: acetaminophen 325mg tablet PO PRN ×2 (22:05)
[2021-07-25] MEDS ORDERED: diphenhydrAMINE 50 mg/ml inj IV PRN (22:05)
[2021-07-25] MEDS ORDERED: mag hydrox/Alum hydrox/simeth 30ml oral suspension PO PRN (22:05)
[2021-07-25] MEDS ORDERED: diphenhydrAMINE 25mg capsule PO PRN (22:05)
[2021-07-25] MEDS ORDERED: acetaminophen 650mg rectal suppository RC PRN (22:05)
[2021-07-25] MEDS ORDERED: ondansetron/PF 4mg/2ml inj IV PRN (22:05)
[2021-07-25] MEDS ORDERED: magnesium hydroxide 30ml (MOM) UD suspension PO PRN (22:05)
[2021-07-25] MEDS ORDERED: morphine 2 MG/ML inj. syringe IV PRN (22:05)
[2021-07-25] MEDS ORDERED: HYDROmorphone inj. 0.5 MG/0.5 ML DISP.SYRIN IV PRN (22:05)
[2021-07-25] MEDS ORDERED: ondansetron 4mg rapidly disintigrating tab PO PRN (22:05)
[2021-07-25] MEDS ORDERED: bisacodyl 10mg suppository rectal RC PRN (22:05)
[2021-07-25] MEDS ORDERED: HYDROcodone/acetaminophen 5mg/325mg tablet PO PRN (22:05)
[2021-07-25] MEDS ORDERED: MESSAGE TO PHARMACY PO ONE (22:20)
[2021-07-25] MEDS ORDERED: dextrose ORAL solution 15 GM/59 ML bottle PO PRN ×2 (22:20)
[2021-07-25] MEDS ORDERED: glucagon, human recombinant 1mg kit SUBCUT PRN (22:20)
[2021-07-25] MEDS ORDERED: dextrose 50%-water 50ml dispensing syringe IV PRN ×2 (22:20)
[2021-07-25 22:41] LABS: CREATINE KINASE 53 U/L (26-192); LIPASE < 50 U/L (73-393); MAGNESIUM 1.6 MG/DL (1.5-2.4); PHOSPHORUS 2.2 MG/DL (2.3-4.5)
[2021-07-25] MEDS ORDERED: HYDR-3927 PO (23:07)
[2021-07-25] MEDS ORDERED: LISI10TA27 PO (23:07)
[2021-07-25] MEDS ORDERED: BUPR300T86 PO (23:07)
[2021-07-25] MEDS ORDERED: ATOR-2 PO (23:07)
[2021-07-25] MEDS ORDERED: CHOL500050 PO (23:10)
[2021-07-26] VITALS (29 sets, daily range): BP systolic 84–149; BP diastolic 44–71
[2021-07-26] MEDS ORDERED: sodium phosphate inj. 15 MMOL in dextrose 5%-water 250 ML IV PRN (00:40)
[2021-07-26] MEDS ORDERED: sodium phosphate inj. 30 MMOL in dextrose 5%-water 250 ML IV PRN (00:40)
[2021-07-26] MEDS ORDERED: Neutra Phos packet PO PRN (00:40)
[2021-07-26] MEDS: normal saline 1000ml 1,000 ML IV SCH ×3 (01:50→18:05)
[2021-07-26] MEDS: tamsulosin 0.4mg capsule PO SCH ×2 (02:00→20:38)
[2021-07-26 06:30] LABS: BASOPHILS % (AUTO) 0.2 % (0-1); EOSINOPHILS % (AUTO) 0 % (0-6); HEMATOCRIT 39.1 % (35.0-45.0); HEMOGLOBIN 13.1 g/dl (12.0-16.0); LYMPHOCYTES # (AUTO) 0.7 X10'3 (1.1-4.8); LYMPHOCYTES % (AUTO) 5.8 % (21-51); MEAN CORPUSCULAR HEMOGLOBIN 30.6 PG (27.0-31.0); MEAN CORPUSCULAR HGB CONC 33.4 g/dL (33.0-36.5); MEAN CORPUSCULAR VOLUME 91.5 FL (78-98); MEAN PLATELET VOLUME 9.4 FL (7.4-10.4); MONOCYTES # (AUTO) 0.7 X10'3 (0-0.9); MONOCYTES % (AUTO) 5.8 % (2-12); NEUTROPHILS # (AUTO) 10.9 X10'3 (1.8-7.7); NEUTROPHILS % (AUTO) 88.2 % (42-75); PLATELET COUNT 97 X10'3 (140-440); RED BLOOD COUNT 4.28 X10'6 (4.20-5.60); RED CELL DISTRIBUTION WIDTH 14.1 % (11.5-14.5); WHITE BLOOD COUNT 12.4 X10'3 (4.5-11.0)
[2021-07-26 06:33] LABS: PARTIAL THROMBOPLASTIN TIME 31 SECONDS (22-32)
--- NOTE | 2021-07-26 06:49 | NUR ---
Patient in room ORTHO 4009. I have received report from ARRON Castañeda and had the opportunity to ask questions and assume patient care.
[2021-07-26 06:54] LABS: ALANINE AMINOTRANSFERASE 19 U/L (12-78); ALBUMIN 2.8 G/DL (3.4-5.0); ALBUMIN/GLOBULIN RATIO 0.7 (1.1-1.5); ALKALINE PHOSPHATASE 72 IU/L (46-116); ANION GAP 11 (8-16); ASPARTATE AMINO TRANSFERASE 14 U/L (10-37); BLOOD UREA NITROGEN 15 MG/DL (7-18); BUN/CREATININE RATIO 11.5 (6.6-38.0); CALCIUM 8.3 MG/DL (8.5-10.1); CHLORIDE 107 MMOL/L (99-107); GLUCOSE 256 MG/DL (70-104); POTASSIUM 3.5 MMOL/L (3.5-5.1); SODIUM 141 MMOL/L (135-145); TOTAL CARBON DIOXIDE 23.4 MMOL/L (24-32); TOTAL PROTEIN 6.7 G/DL (6.4-8.2); eGFR 42 ML/MIN
[2021-07-26] MEDS ORDERED: hydrOXYzine 25 MG tablet PO PRN (08:00)
[2021-07-26] MEDS: CefTRIAXone/D5W-Rocephin 1gm 50 ML IV SCH (08:29)
[2021-07-26] MEDS: docusate sod 100mg capsule PO SCH ×2 (08:29→20:00)
[2021-07-26] MEDS: atorvastatin 20mg tablet PO SCH (08:30)
[2021-07-26] MEDS: pantoprazole 40mg Tablet.DR PO SCH (08:30)
[2021-07-26] MEDS: buPROPion SR 150mg tablet PO SCH ×2 (08:30→20:00)
[2021-07-26] MEDS: nicotine 21mg patch - 24 hr TD SCH (08:34)
[2021-07-26] MEDS: insulin Lispro (HumaLOG) vial - multi-dose SQ SCH ×3 (10:25→22:37)
[2021-07-26] MEDS ORDERED: morphine 4 MG/ML inj SYRINge IV PRN (10:35)
[2021-07-26] MEDS ORDERED: ringers solution, lacted 1,000 ML IV SCH (10:35)
[2021-07-26] MEDS ORDERED: hydrALAZINE 20mg/ml inj. IV PRN (10:35)
[2021-07-26] MEDS ORDERED: ondansetron/PF 4mg/2ml inj IV PRN (10:35)
[2021-07-26] MEDS ORDERED: morphine 2 MG/ML inj. syringe IV PRN (10:35)
[2021-07-26] MEDS ORDERED: fentaNYL/PF 50MCG/1 ML 2ML syringe IV PRN ×2 (10:35)
[2021-07-26] MEDS ORDERED: enalaprilat dihydrate 2.5mg/2ml vial IV PRN (10:35)
[2021-07-26] MEDS ORDERED: propofol 10mg/ml 20ml vial IV ONE (11:07)
[2021-07-26] MEDS ORDERED: fentaNYL/PF 50MCG/1 ML 2ML syringe ONE (11:07)
[2021-07-26] MEDS ORDERED: LIDOcaine 2% (20mg/ml) 5ml vial ONE (11:07)
[2021-07-26] MEDS ORDERED: ondansetron/PF 4mg/2ml inj ONE (11:07)
[2021-07-26] MEDS ORDERED: midazolam 1 mg/ML 2ml injection ONE (11:07)
[2021-07-26] MEDS ORDERED: dexamethasone sod phosphate 4mg/ml inj. ONE (11:07)
[2021-07-26] MEDS ORDERED: ePHEDrine 50MG/ML INJ. ONE (11:29)
--- NOTE | 2021-07-26 11:54 | NUR ---
Nutrition consult: Pt admitted w/ flu like symptoms and has been experiencing a decline in status over the last few months per EMR. Pt NPO to undergo cystoscopy and placement of ureteral stents today. Upon assessment, pt states she has had decreased appetite over the last couple months and has been eating less. Pt states she is eating smaller meals but still has a varied diet. Pt reports she may have lost about 15lb in the last 2 months, however her current wt is consistent w/ wt from previous admission in February, though not scaled. Pt reports she is a little nauseas but no vomiting. LBM 07/25. Limited nutrition interventions at this time given NPO status, will continue to monitor. Recs 1. Advance to CCHO diet when medically appropriate given DM hx 2. Bowel care per rx 3. Weekly wts Addendum: 07/26/21 at [address] Amended: Links added.
--- NOTE | 2021-07-26 12:00 | NUR ---
RECEIVED PT FROM OR VIA BED ACCOMPANIED BY ANESTHESIOLOGIST, DR. MENJIVAR - REPORT GIVEN, PT STILL WAKING UP, VSS - BP NOTED TO BE LOW-PT PLACED IN REVERSE [place] WITH FEET UP, SEE VS FLOWSHEET, GIVEN ORDERS FOR ALBUMIN TO ASSIST LOW BP, PT RESPONSIVE TO VOICE, DENIES PAIN, PIV 20G TO RIGHT A/C-LR RUNNING, SCDS IN PLACE.
[2021-07-26] MEDS ORDERED: albumin (Human) 5% 250ml 250 ML IV ONE ×2 (12:05)
--- NOTE | 2021-07-26 14:30 | NUR ---
1 DOSE 250ML ALBUMIN GIVEN PER ANESTHESIA ORDER, BP BETTER, PT AWAKE, SITTING UP TAKING FLUIDS SLOWLY, DENIES PAIN, VSS, HOSPITALIST IN TO SEE PT
--- NOTE | 2021-07-26 14:45 | NUR ---
Pt returned from OR awake, denies pain. Reorinted to room & post op POC. Call light in reach, bed low.
--- NOTE | 2021-07-26 15:10 | NUR ---
PT VSS, AWAKE AND ALERT, DENIES PAIN, TOLERATING FLUIDS, PIV TO LEFT HAND D/CD-INFILTRATED, 20G PIV RIGHT A/C - NS RUNNING, SCDS IN PLACE, REPORT CALLED TO PRIMARY RN, MINDA, ALL QUESTIONS ANSWERED. PT TAKEN BACK TO ROOM 357B BY OR TECHS, BED LOW AND LOCKED, CALL LIGHT IN REACH.
--- NOTE | 2021-07-26 19:22 | NUR ---
Problems reprioritized. Patient report given, questions answered & plan of care reviewed with ARRON Ray.
--- NOTE | 2021-07-26 20:43 | NUR ---
patient refused colace, has many bouts of diarrhea, and wellbutrin, she stopped this home med several weeks ago at home, doesn't want it here
[2021-07-27] MEDS: normal saline 1000ml 1,000 ML IV SCH ×2 (04:05→14:05)
--- NOTE | 2021-07-27 06:07 | NUR ---
po pain med requested has been ineffective for pain. Pain in back and abdomen. Urine remains clear w/ possible sediment, no stones retrieved. Zofran effective for nausea. Will give more potent med for pain when available. Attempts to sleep at change of shift.
[2021-07-27 06:09] LABS: BASOPHILS % (AUTO) 0.1 % (0-1); EOSINOPHILS % (AUTO) 0 % (0-6); HEMATOCRIT 35.1 % (35.0-45.0); HEMOGLOBIN 11.7 g/dl (12.0-16.0); LYMPHOCYTES # (AUTO) 0.6 X10'3 (1.1-4.8); LYMPHOCYTES % (AUTO) 4.1 % (21-51); MEAN CORPUSCULAR HEMOGLOBIN 30.2 PG (27.0-31.0); MEAN CORPUSCULAR HGB CONC 33.3 g/dL (33.0-36.5); MEAN CORPUSCULAR VOLUME 90.7 FL (78-98); MEAN PLATELET VOLUME 9.9 FL (7.4-10.4); MONOCYTES # (AUTO) 0.8 X10'3 (0-0.9); MONOCYTES % (AUTO) 5.9 % (2-12); NEUTROPHILS % (AUTO) 89.9 % (42-75); PLATELET COUNT 96 X10'3 (140-440); RED BLOOD COUNT 3.87 X10'6 (4.20-5.60); RED CELL DISTRIBUTION WIDTH 14.3 % (11.5-14.5); WHITE BLOOD COUNT 13.3 X10'3 (4.5-11.0)
[2021-07-27 06:32] LABS: ALANINE AMINOTRANSFERASE 23 U/L (12-78); ALBUMIN 2.6 G/DL (3.4-5.0); ALBUMIN/GLOBULIN RATIO 0.7 (1.1-1.5); ALKALINE PHOSPHATASE 63 IU/L (46-116); ANION GAP 11 (8-16); ASPARTATE AMINO TRANSFERASE 13 U/L (10-37); BILIRUBIN,TOTAL 0.4 MG/DL (0.1-1.0); BLOOD UREA NITROGEN 21 MG/DL (7-18); BUN/CREATININE RATIO 20.6 (6.6-38.0); CALCIUM 8.3 MG/DL (8.5-10.1); CHLORIDE 105 MMOL/L (99-107); CREATININE 1.02 MG/DL (0.40-0.90); GLUCOSE 327 MG/DL (70-104); POTASSIUM 3.8 MMOL/L (3.5-5.1); SODIUM 138 MMOL/L (135-145); TOTAL CARBON DIOXIDE 22.3 MMOL/L (24-32); TOTAL PROTEIN 6.3 G/DL (6.4-8.2); eGFR 55 ML/MIN
--- NOTE | 2021-07-27 06:40 | NUR ---
Patient in room MARIE 357. I have received report from ARRON Ray and had the opportunity to ask questions and assume patient care.
[2021-07-27 07:00] VITALS: BP 137/63
[2021-07-27] MEDS: docusate sod 100mg capsule PO SCH ×2 (07:10→20:00)
[2021-07-27] MEDS: atorvastatin 20mg tablet PO SCH (07:52)
[2021-07-27] MEDS: CefTRIAXone/D5W-Rocephin 1gm 50 ML IV SCH (07:52)
[2021-07-27] MEDS: buPROPion SR 150mg tablet PO SCH ×2 (07:52→19:39)
[2021-07-27] MEDS: pantoprazole 40mg Tablet.DR PO SCH (07:52)
[2021-07-27] MEDS: nicotine 21mg patch - 24 hr TD SCH ×2 (07:54→10:35)
[2021-07-27 11:00] VITALS: BP 140/61
[2021-07-27] MEDS: HYDROcodone/acetaminophen 10/325mg tab PO PRN ×2 (12:15→17:30)
[2021-07-27] MEDS: insulin Lispro (HumaLOG) vial - multi-dose SQ SCH ×3 (12:17→22:12)
[2021-07-27 18:00] VITALS: BP 121/62
--- NOTE | 2021-07-27 18:54 | NUR ---
Patient in room MARIE 357. I have received report from MINDA HELLER and had the opportunity to ask questions and assume patient care.
--- NOTE | 2021-07-27 19:14 | NUR ---
Problems reprioritized. Patient report given, questions answered & plan of care reviewed with ARRON Adkins.
[2021-07-27] MEDS: lactobacillus rhamnosus 10,000 MMU CELLS/CAPSULE PO SCH (19:30)
[2021-07-27] MEDS: morphine 2 MG/ML inj. syringe IV PRN (19:34)
[2021-07-27] MEDS: tamsulosin 0.4mg capsule PO SCH (21:58)
[2021-07-28] VITALS: BP 122/73
[2021-07-28] MEDS: normal saline 1000ml 1,000 ML IV SCH ×2 (00:05→04:30)
[2021-07-28] MEDS: morphine 2 MG/ML inj. syringe IV PRN (00:54)
[2021-07-28] MEDS: HYDROcodone/acetaminophen 10/325mg tab PO PRN ×2 (04:44→08:48)
[2021-07-28 06:38] LABS: ALANINE AMINOTRANSFERASE 22 U/L (12-78); ALBUMIN 2.2 G/DL (3.4-5.0); ALBUMIN/GLOBULIN RATIO 0.7 (1.1-1.5); ALKALINE PHOSPHATASE 57 IU/L (46-116); ANION GAP 10 (8-16); ASPARTATE AMINO TRANSFERASE 18 U/L (10-37); BILIRUBIN,TOTAL 0.3 MG/DL (0.1-1.0); BLOOD UREA NITROGEN 14 MG/DL (7-18); BUN/CREATININE RATIO 13.3 (6.6-38.0); CALCIUM 7.5 MG/DL (8.5-10.1); CHLORIDE 102 MMOL/L (99-107); CREATININE 1.05 MG/DL (0.40-0.90); GLUCOSE 187 MG/DL (70-104); POTASSIUM 3.1 MMOL/L (3.5-5.1); SODIUM 135 MMOL/L (135-145); TOTAL CARBON DIOXIDE 22.6 MMOL/L (24-32); TOTAL PROTEIN 5.5 G/DL (6.4-8.2); eGFR 53 ML/MIN
--- NOTE | 2021-07-28 06:43 | NUR ---
Problems reprioritized. Patient report given, questions answered & plan of care reviewed with MARY CARMEN HELLER.
--- NOTE | 2021-07-28 06:50 | NUR ---
Patient in room MARIE 357. I have received report from Lucille HELLER and had the opportunity to ask questions and assume patient care.
[2021-07-28 07:30] VITALS: BP 113/60
[2021-07-28] MEDS: buPROPion SR 150mg tablet PO SCH (08:32)
[2021-07-28] MEDS: CefTRIAXone/D5W-Rocephin 1gm 50 ML IV SCH (08:32)
[2021-07-28] MEDS: lactobacillus rhamnosus 10,000 MMU CELLS/CAPSULE PO SCH (08:32)
[2021-07-28] MEDS: docusate sod 100mg capsule PO SCH (08:32)
[2021-07-28] MEDS: pantoprazole 40mg Tablet.DR PO SCH (08:33)
[2021-07-28] MEDS: atorvastatin 20mg tablet PO SCH (08:33)
[2021-07-28] MEDS: nicotine 21mg patch - 24 hr TD SCH (08:34)
[2021-07-28] MEDS: insulin Lispro (HumaLOG) vial - multi-dose SQ SCH (08:51)
[2021-07-28 08:55] LABS: BASOPHILS % (AUTO) 0.2 % (0-1); EOSINOPHILS % (AUTO) 0.3 % (0-6); HEMATOCRIT 35.6 % (35.0-45.0); HEMOGLOBIN 11.8 g/dl (12.0-16.0); LYMPHOCYTES # (AUTO) 0.9 X10'3 (1.1-4.8); LYMPHOCYTES % (AUTO) 14.4 % (21-51); MEAN CORPUSCULAR HEMOGLOBIN 30.2 PG (27.0-31.0); MEAN CORPUSCULAR HGB CONC 33.2 g/dL (33.0-36.5); MEAN CORPUSCULAR VOLUME 91.1 FL (78-98); MEAN PLATELET VOLUME 9.5 FL (7.4-10.4); MONOCYTES # (AUTO) 0.5 X10'3 (0-0.9); MONOCYTES % (AUTO) 8.1 % (2-12); NEUTROPHILS # (AUTO) 5.1 X10'3 (1.8-7.7); PLATELET COUNT 99 X10'3 (140-440); WHITE BLOOD COUNT 6.6 X10'3 (4.5-11.0)
[2021-07-28] MEDS ORDERED: LEVO500T89 PO (10:54)
[2021-07-28 11:00] VITALS: BP 112/63
[2021-07-28] MEDS ORDERED: potassium Cl 20 mEq SR tablet PO ONE (11:10)
--- NOTE | 2021-07-28 12:45 | NUR ---
Pt waiting for her ride, should be here any time. hospital administrative assistant aware. Will continue to monitor.
--- NOTE | 2021-07-28 13:20 | NUR ---
Pt stable and appropriate for discharge. PIV d/c'd cannula intact. Reviewed with pt all d/c instructions, meds, s/sx infection (fever, flank pain, malaise), pt to call for followup appts within one week with Dr Brown and PCP with pt given opportunity to ask questions, answers provided and pt verbalizing understanding. Prescriptions escripted to pharmacy of choice. Pt to call PCP or Dr Brown with questions/concerns, s/sx infection or worsening symptoms, or return to nearest ER. Pt states she has all personal belongings. Pt escorted to front lobby by staff member via w/c. D/C'd home in private vehicle driven by family member.
== END 2021-07-28 13:22 | disposition home or self-care (01) | DRG 720 ==
LOC: ER 16:08 → ED HOLD 22:16 → ORTHO 4S 07-26 01:10 → SUR 3N 07-26 09:46
PROVIDERS: ADMIT Family Medicine; ATTEND Internal Medicine
PROC: 0T768DZ Dilation of Right Ureter with Intraluminal Device, Via Natural or Artificial Opening Endoscopic (ICD-10-PCS; principal; 2021-07-26 11:07)
DX: A41.9 Sepsis, unspecified organism (principal); G93.40 Encephalopathy, unspecified; E87.2 Acidosis; N17.9 Acute kidney failure, unspecified; C34.90 Malignant neoplasm of unspecified part of unspecified bronchus or lung; E83.39 Other disorders of phosphorus metabolism; N11.1 Chronic obstructive pyelonephritis; E11.22 Type 2 diabetes mellitus with diabetic chronic kidney disease; E86.0 Dehydration; I50.32 Chronic diastolic (congestive) heart failure; I13.0 Hypertensive heart and chronic kidney disease with heart failure and stage 1 through stage 4 chronic kidney disease, or unspecified chronic kidney disease; N20.2 Calculus of kidney with calculus of ureter; B96.1 Klebsiella pneumoniae [K. pneumoniae] as the cause of diseases classified elsewhere; N39.0 Urinary tract infection, site not specified; B96.20 Unspecified Escherichia coli [E. coli] as the cause of diseases classified elsewhere; N18.30 Chronic kidney disease, stage 3 unspecified; R82.4 Acetonuria; E78.00 Pure hypercholesterolemia, unspecified; E78.5 Hyperlipidemia, unspecified; Z20.822 Contact with and (suspected) exposure to COVID-19; Z72.0 Tobacco use; Z79.84 Long term (current) use of oral hypoglycemic drugs; Z87.440 Personal history of urinary (tract) infections; Z87.442 Personal history of urinary calculi; Z88.0 Allergy status to penicillin; Z88.2 Allergy status to sulfonamides; Z90.710 Acquired absence of both cervix and uterus; Z90.49 Acquired absence of other specified parts of digestive tract; Z79.899 Other long term (current) drug therapy; Z79.82 Long term (current) use of aspirin; Z71.6 Tobacco abuse counseling
CPT/HCPCS: 36415; 70450; 71045; 74176; 76000; 80053; 81001; 82550; 82948; 83605; 83690; 83735; 83880; 84100; 84145; 85025; 85610; 85730; 87040; 87077; 87081; 87088; 87186; 93005; 99285; A4618; C1769; C2617; G0378; J0696; J1100; J1170; J1815; J2001; J2250; J2270; J2405; J2704; J3010; J7030; J7120; P9045

== ENCOUNTER 2021-09-13 08:00 | Inpatient (IN) | payer MEDICAID ==
[2021-09-12 16:29] LABS: BASOPHILS # (AUTO) 0.1 X10'3 (0-0.2); EOSINOPHILS # (AUTO) 0.3 X10'3 (0-0.9); EOSINOPHILS % (AUTO) 3.2 % (0-6); LYMPHOCYTES # (AUTO) 1.8 X10'3 (1.1-4.8); LYMPHOCYTES % (AUTO) 19.5 % (21-51); MEAN CORPUSCULAR HEMOGLOBIN 30.4 PG (27.0-31.0); MEAN CORPUSCULAR HGB CONC 34.1 g/dL (33.0-36.5); MEAN CORPUSCULAR VOLUME 89.1 FL (78-98); MEAN PLATELET VOLUME 8.4 FL (7.4-10.4); MONOCYTES # (AUTO) 0.4 X10'3 (0-0.9); MONOCYTES % (AUTO) 4.9 % (2-12); NEUTROPHILS # (AUTO) 6.4 X10'3 (1.8-7.7); NEUTROPHILS % (AUTO) 71.4 % (42-75); PRE OP HEMATOCRIT 36.3 % (35.0-45.0); PRE OP HEMOGLOBIN 12.4 g/dL (12.0-16.0); PRE OP PLATELET COUNT 234 X10'3 (140-440); RED BLOOD COUNT 4.08 X10'6 (4.20-5.60); RED CELL DISTRIBUTION WIDTH 14.3 % (11.5-14.5)
[2021-09-12 16:33] LABS: COLOR,URINE YELLOW (Yellow); UA COLLECTION TYPE CLN CATCH MIDSTREAM
[2021-09-12 16:34] LABS: CLARITY,URINE Slightly Cloudy (Clear); GLUCOSE, URINE Negative (Neg); KETONES,URINE Trace mg/dl (Neg); LEUKOCYTE ESTERASE ,URINE TRACE (Neg); NITRITES, URINE NEGATIVE (Neg); OCCULT BLOOD,URINE NEGATIVE (Neg); PROTEIN,URINE Negative (Neg); UROBILINOGEN,URINE 0.2 E.U/dL (0.2-1.0)
[2021-09-12 16:40] LABS: BACTERIA,URINE 1+ /HPF (Neg); RBC,URINE NONE SEEN /HPF (0-2); SQUAMOUS EPITHELIAL CELL,UR FEW /LPF (FEW)
[2021-09-12 16:42] LABS: PRE OP INR 1.1 INR; PRE OP PROTIME 11.1 SECONDS (9.0-12.0)
[2021-09-12 16:42] LABS: CAL OXALATE CRYSTALS FEW /HPF (NEGATIVE)
[2021-09-12 16:44] LABS: ALBUMIN 3.1 G/DL (3.4-5.0); ALBUMIN/GLOBULIN RATIO 0.7 (1.1-1.5); ALKALINE PHOSPHATASE 61 IU/L (46-116); BLOOD UREA NITROGEN 20 MG/DL (7-18); BUN/CREATININE RATIO 18.9 (6.6-38.0); CALCIUM 9.4 MG/DL (8.5-10.1); CHLORIDE 105 MMOL/L (99-107); CREATININE 1.06 MG/DL (0.40-0.90); PRE OP ALT 15 U/L (30-65); PRE OP ANION GAP 10 (8-16); PRE OP AST 12 U/L (10-37); PRE OP BILIRUB, TOTAL 0.4 MG/DL (0.0-1.0); PRE OP GLUCOSE 124 MG/DL (70-104); PRE OP POTASSIUM 3.8 MMOL/L (3.4-5.1); PRE OP SODIUM 141 MMOL/L (135-145); TOTAL CARBON DIOXIDE 25.8 MMOL/L (24-32); TOTAL PROTEIN 7.3 G/DL (6.4-8.2); eGFR 53 ML/MIN
[2021-09-12 16:49] LABS: HEMOGLOBIN A1C 8.7 % (4.5-6.2)
[~2021-09-13] VITALS: Ht 165.1 cm; Wt 82.0 kg
[~2021-09-13 08:00] MED LIST changes: +ALBU18HF2 INH; +ATOR-2 PO; -ATOR10TA PO; -BECL7.3A INH; +BUPR300T86 PO; +HYDR-3927 PO; +LEVO500T90 PO; +LISI10TA27 PO; -LISI40TA13 PO; +METF-1203 PO; -METF-950 PO; +TIOT18CA3 INH
[2021-09-19] VITALS (13 sets, daily range): BP systolic 103–157; BP diastolic 62–78
[2021-09-19] MEDS ORDERED: albuterol 2.5 MG/3 ML nebule NEB ONE (05:30)
[2021-09-19] MEDS ORDERED: ringers solution, lacted 1,000 ML IV SCH ×2 (05:30→10:05)
[2021-09-19] MEDS ORDERED: famotidine 20mg tablet PO ONE (05:30)
[2021-09-19] MEDS ORDERED: clindamycin-Cleocin 900mg/D5W 50 ML IV ONE (05:30)
[2021-09-19] MEDS ORDERED: BUPIVAcaine/PF 2.5 mg/ml (0.25%) 30ml vial ONE (07:43)
[2021-09-19] MEDS ORDERED: BUPIVAcaine/PF 2.5mg/ml (0.25%) 10ml vial ONE (07:43)
[2021-09-19] MEDS ORDERED: BUPIVACAINE liposomal/PF 13.3 MG/ML vial IM ONE (07:44)
[2021-09-19] MEDS ORDERED: iohexol 300mg/ml 100ml inj. ONE (08:24)
[2021-09-19] MEDS ORDERED: LIDOcaine 1% (10mg/ml) 2ml vial ONE (08:36)
[2021-09-19] MEDS ORDERED: insulin regular, human U-100 3ml vial - multi-dose IV ONE (10:05)
[2021-09-19] MEDS ORDERED: ondansetron/PF 4mg/2ml inj IV PRN (10:05)
[2021-09-19] MEDS ORDERED: morphine 2 MG/ML inj. syringe IV PRN (10:05)
[2021-09-19] MEDS ORDERED: proCHLORperazine 10 MG/2 ml inj IV PRN (10:05)
[2021-09-19] MEDS ORDERED: meperidine/PF 25mg/ml syringe IV PRN ×3 (10:05)
[2021-09-19] MEDS ORDERED: morphine 4 MG/ML inj SYRINge IV PRN (10:05)
[2021-09-19] MEDS ORDERED: MIDAZolam 1 MG/ML 5ML VIAL ONE (10:24)
[2021-09-19] MEDS ORDERED: fentaNYL /PF 50mcg/ml 5ml ampule ONE (10:24)
[2021-09-19] MEDS ORDERED: propofol inj 20 ML IV ONE (10:33)
[2021-09-19] MEDS ORDERED: LIDOcaine 2% (20mg/ml) 5ml vial ONE (10:33)
[2021-09-19] MEDS ORDERED: rocuronium 10mg/ml inj IV ONE (10:33)
[2021-09-19] MEDS ORDERED: albumin (Human) 5% 250ml 250 ML IV ONE ×2 (14:00→17:30)
[2021-09-19] MEDS ORDERED: NORepinephrine 1 mg/ml inj IV ONE (14:04)
[2021-09-19] MEDS ORDERED: fentaNYL/PF 50MCG/1 ML 2ML syringe ONE (15:35)
[2021-09-19] MEDS ORDERED: insulin regular, human U-100 3ml vial - multi-dose ONE (16:59)
[2021-09-19] MEDS ORDERED: morphine 10mg/ml inj. ONE (18:11)
[2021-09-19] MEDS ORDERED: ipratropium/albuterol 3ml nebule IH PRN (18:50)
[2021-09-19] MEDS ORDERED: FENTANYL-0.9 % NACL/PF 100 ML IV PRN (18:50)
[2021-09-19 20:20] LABS: ABG BASE EXCESS -7.3 mmol/L (-2.0-2.0); ABG OXYGEN SATURATION 98.8 % (94-97); ABG PCO2 (T) 40.8 mmHg (32.0-45.0); ABG PO2 (T) 191.8 mmHg (75.0-100.0); FCOHb 0.3 % (0.0-3.9); FMetHb 0.6 % (0.0-1.5); FO2Hb 97.9 % (94-97); PATIENT TEMPERATURE 36.6; PEEP 5 cm H2O; RESPIRATORY RATE 10 b/min; TIDAL VOLUME 500 mL; TOTAL HEMOGLOBIN 10.8 G/dl (12.0-16.0)
--- NOTE | 2021-09-19 20:30 | NUR ---
PT arrived via ICU bed accompanied by OR crew, bedside report received from Jyoti HELLER as well as Anesthesia. PT is intubated and RT at bedside placed PT on ventilator, tolerating settings well with O2 sat >97%. PT has chest tubes to LT lateral chest, secure and Drsg is CDI. Dr Muro ordered CT to H2O seal while on Vent. Sanguineous drainage noted in tubing and Atrium. PT has triple lumen CVL to LT IJ, RT radial A-Line, transduced and lines zeroed. Quinones in place draining to gravity. Bed is locked and low. Bilat soft wrist restraints in place and secured. Will continue to monitor.
[2021-09-19] MEDS: propofol 1000mg/100ml bottle 100 ML IV SCH (20:34)
[2021-09-19] MEDS ORDERED: dextrose ORAL solution 15 GM/59 ML bottle PO PRN ×2 (21:00)
[2021-09-19] MEDS ORDERED: MESSAGE TO PHARMACY PO ONE (21:00)
[2021-09-19] MEDS ORDERED: dextrose 50%-water 50ml dispensing syringe IV PRN ×2 (21:00)
[2021-09-19] MEDS ORDERED: glucagon, human recombinant 1mg kit SUBCUT PRN (21:00)
[2021-09-19 21:09] LABS: BASOPHILS % (AUTO) 0.2 % (0-1); EOSINOPHILS % (AUTO) 0 % (0-6); LYMPHOCYTES # (AUTO) 0.6 X10'3 (1.1-4.8); LYMPHOCYTES % (AUTO) 5.7 % (21-51); MEAN CORPUSCULAR HEMOGLOBIN 30.4 PG (27.0-31.0); MEAN CORPUSCULAR HGB CONC 33.3 g/dL (33.0-36.5); MEAN CORPUSCULAR VOLUME 91.5 FL (78-98); MEAN PLATELET VOLUME 9.2 FL (7.4-10.4); MONOCYTES # (AUTO) 0.6 X10'3 (0-0.9); MONOCYTES % (AUTO) 5.6 % (2-12); NEUTROPHILS # (AUTO) 9.8 X10'3 (1.8-7.7); NEUTROPHILS % (AUTO) 88.5 % (42-75); PLATELET COUNT 143 X10'3 (140-440); RED BLOOD COUNT 3.27 X10'6 (4.20-5.60); RED CELL DISTRIBUTION WIDTH 15.2 % (11.5-14.5); WHITE BLOOD COUNT 11.1 X10'3 (4.5-11.0)
[2021-09-19 21:27] LABS: ALANINE AMINOTRANSFERASE 32 U/L (12-78); ALBUMIN 2.8 G/DL (3.4-5.0); ALKALINE PHOSPHATASE 46 IU/L (46-116); ANION GAP 11 (8-16); ASPARTATE AMINO TRANSFERASE 40 U/L (10-37); BILIRUBIN,TOTAL 0.5 MG/DL (0.1-1.0); BLOOD UREA NITROGEN 21 MG/DL (7-18); BUN/CREATININE RATIO 20.4 (6.6-38.0); CALCIUM 7.6 MG/DL (8.5-10.1); CHLORIDE 110 MMOL/L (99-107); CREATININE 1.03 MG/DL (0.40-0.90); GLUCOSE 200 MG/DL (70-104); MAGNESIUM 1.5 MG/DL (1.5-2.4); PHOSPHORUS 3.8 MG/DL (2.3-4.5); POTASSIUM 4.1 MMOL/L (3.5-5.1); SODIUM 144 MMOL/L (135-145); TOTAL CARBON DIOXIDE 23.2 MMOL/L (24-32); TOTAL PROTEIN 5.7 G/DL (6.4-8.2); eGFR 55 ML/MIN
[2021-09-19] MEDS: insulin glargine (Lantus) pen - multi-dose SQ SCH (22:51)
[2021-09-19] MEDS: insulin Lispro (HumaLOG) vial - multi-dose SQ SCH (22:52)
[2021-09-19] MEDS: ringers solution, lacted 1,000 ML IV SCH (22:53)
[2021-09-20] VITALS (24 sets, daily range): BP systolic 87–172; BP diastolic 45–116
[2021-09-20] MEDS: insulin Lispro (HumaLOG) vial - multi-dose SQ SCH ×2 (02:17→15:10)
[2021-09-20 02:54] LABS: ABG HCO3 23.8 mmol/L (22.0-26.0); ABG OXYGEN SATURATION 98.8 % (94-97); ABG PCO2 (T) 44.3 mmHg (32.0-45.0); ABG PO2 (T) 153.2 mmHg (75.0-100.0); FCOHb 0.3 % (0.0-3.9); FMetHb 0.5 % (0.0-1.5); PATIENT TEMPERATURE 36.6; PEEP 5 cm H2O; RESPIRATORY RATE 10 b/min; TIDAL VOLUME 500 mL; TOTAL HEMOGLOBIN 11.1 G/dl (12.0-16.0)
[2021-09-20 03:40] LABS: BASOPHILS % (AUTO) 0.3 % (0-1); EOSINOPHILS % (AUTO) 0 % (0-6); HEMATOCRIT 30.2 % (35.0-45.0); HEMOGLOBIN 10.3 g/dl (12.0-16.0); LYMPHOCYTES # (AUTO) 0.8 X10'3 (1.1-4.8); LYMPHOCYTES % (AUTO) 8.2 % (21-51); MEAN CORPUSCULAR HEMOGLOBIN 30.9 PG (27.0-31.0); MEAN CORPUSCULAR VOLUME 90.7 FL (78-98); MEAN PLATELET VOLUME 9.4 FL (7.4-10.4); MONOCYTES # (AUTO) 0.6 X10'3 (0-0.9); MONOCYTES % (AUTO) 5.6 % (2-12); NEUTROPHILS # (AUTO) 8.5 X10'3 (1.8-7.7); NEUTROPHILS % (AUTO) 85.9 % (42-75); PLATELET COUNT 141 X10'3 (140-440); RED BLOOD COUNT 3.32 X10'6 (4.20-5.60); WHITE BLOOD COUNT 9.9 X10'3 (4.5-11.0)
[2021-09-20 03:58] LABS: ALANINE AMINOTRANSFERASE 34 U/L (12-78); ALBUMIN 2.6 G/DL (3.4-5.0); ALBUMIN/GLOBULIN RATIO 0.9 (1.1-1.5); ALKALINE PHOSPHATASE 42 IU/L (46-116); ANION GAP 8 (8-16); ASPARTATE AMINO TRANSFERASE 71 U/L (10-37); BILIRUBIN,TOTAL 0.4 MG/DL (0.1-1.0); BLOOD UREA NITROGEN 20 MG/DL (7-18); CALCIUM 7.7 MG/DL (8.5-10.1); CHLORIDE 112 MMOL/L (99-107); CREATININE 0.91 MG/DL (0.40-0.90); GLUCOSE 201 MG/DL (70-104); MAGNESIUM 1.8 MG/DL (1.5-2.4); POTASSIUM 4.2 MMOL/L (3.5-5.1); SODIUM 145 MMOL/L (135-145); TOTAL CARBON DIOXIDE 25.1 MMOL/L (24-32); TOTAL PROTEIN 5.6 G/DL (6.4-8.2); eGFR 63 ML/MIN
[2021-09-20] MEDS: propofol 1000mg/100ml bottle 100 ML IV SCH (04:12)
--- NOTE | 2021-09-20 06:42 | NUR ---
Problems reprioritized. Patient report given, questions answered & plan of care reviewed with Jannet HELLER.
[2021-09-20] MEDS: CLINDAMYCIN/D5W 900mg/50ml 50 ML IV SCH ×2 (08:17→15:42)
[2021-09-20] MEDS: ringers solution, lacted 1,000 ML IV SCH ×2 (08:18→22:00)
[2021-09-20] MEDS ORDERED: naloxone 0.4 mg/ml inj IV PRN ×2 (11:30→12:35)
[2021-09-20] MEDS: normal saline 1000ml 1,000 ML IV SCH (11:30)
[2021-09-20] MEDS ORDERED: CADD PCA waste documentation MC PRN (12:35)
[2021-09-20] MEDS ORDERED: racepinephrine 11.25mg/0.5ml nebule NEB PRN (12:35)
[2021-09-20] MEDS ORDERED: ipratropium/albuterol 3ml nebule NEB PRN (12:35)
[2021-09-20] MEDS ORDERED: HYDROmorph./NS 0.2 mg/ml CADD 100 ML IV SCH ×2 (13:00→23:00)
[2021-09-20] MEDS: HYDROmorph./NS 0.2 mg/ml CADD 100 ML IV SCH ×4 (13:05→23:00)
[2021-09-20] MEDS: ketorolac trometh. 30mg/ml inj. IM SCH ×2 (13:44→21:47)
--- NOTE | 2021-09-20 14:41 | NUR ---
Initial: Pt admitted for bronchoscopy, mediastinoscopy, lobectomy, and open thoracotomy per EMR. Pt remained intubated s/p surgery though to be extubated today per MD. Pt only w/ surgical wounds. Pt noted w/ A1C 8.7 up from 7.1 in Jul 2019. Pt would benefit from DM ed once more appropriate post-op. Will continue to monitor and make recommendations as appropriate. Recs: 1. Advance to CCHO diet as tolerated per MD 2. Once diet advanced to at least full liquid, Bernardino Shakes BIDLD 3. Bowel care per rx 4. Weekly wts 5. DM education once pt more appropriate post-op Addendum: 09/20/21 at [address] Amended: Links added.
[2021-09-20] MEDS: ipratropium/albuterol 3ml nebule NEB SCH ×2 (14:48→20:18)
--- NOTE | 2021-09-20 18:30 | NUR ---
Patient in room ICU 2044. I have received report from ARRON Power and had the opportunity to ask questions and assume patient care.
[2021-09-20] MEDS: mineral oil/petrolatum ophthal oint EACHEYE SCH (20:00)
[2021-09-20] MEDS ORDERED: ondansetron/PF 4mg/2ml inj ONE (21:14)
[2021-09-20] MEDS ORDERED: gabapentin 400mg capsule PO ONE (21:25)
[2021-09-20] MEDS: ondansetron/PF 4mg/2ml inj IV PRN (21:30)
--- NOTE | 2021-09-20 21:30 | NUR ---
Patient noted to have intractible pain at incision site refractory to [employer] use. MD to bedside with new orders to increase dilaudid CADD to basal rate of 0.2 and demand rate 0.2. While attempting to make changes to CADD, incorrect medication concentration noted to be programmed incorrectly at 1mg/1ml. Order was noted for 0.2mg/1ml. New CADD changed and correctly programmed per orders.
[2021-09-20] MEDS ORDERED: gabapentin 300mg capsule PO ONE (21:35)
[2021-09-20] MEDS: insulin glargine (Lantus) pen - multi-dose SQ SCH (21:56)
[2021-09-20] MEDS ORDERED: albumin (Human) 5% 250ml 250 ML IV ONE ×4 (22:38→22:42)
--- NOTE | 2021-09-20 22:45 | NUR ---
After CADD changes, patient's pain better controlled. BP changes noted, with SBP <70. MD notified. Telephone order for 500ml 5% albumin. Orders to give and call back if no improvement in SBP. Treatment effective, SBP >90.
[2021-09-21] VITALS (23 sets, daily range): BP systolic 82–134; BP diastolic 35–73
[2021-09-21] MEDS: CLINDAMYCIN/D5W 900mg/50ml 50 ML IV SCH ×3 (00:01→16:24)
[2021-09-21] MEDS: HYDROmorph./NS 0.2 mg/ml CADD 100 ML IV SCH ×12 (01:00→23:00)
[2021-09-21] MEDS: mineral oil/petrolatum ophthal oint EACHEYE SCH ×4 (02:00→19:23)
[2021-09-21] MEDS: ipratropium/albuterol 3ml nebule NEB SCH ×4 (02:54→19:45)
[2021-09-21] MEDS: ketorolac trometh. 30mg/ml inj. IM SCH ×4 (03:03→19:21)
[2021-09-21 03:13] LABS: BASOPHILS % (AUTO) 0.3 % (0-1); EOSINOPHILS # (AUTO) 0.1 X10'3 (0-0.9); EOSINOPHILS % (AUTO) 0.8 % (0-6); HEMATOCRIT 28.2 % (35.0-45.0); HEMOGLOBIN 9.4 g/dl (12.0-16.0); LYMPHOCYTES # (AUTO) 1.1 X10'3 (1.1-4.8); LYMPHOCYTES % (AUTO) 12.7 % (21-51); MEAN CORPUSCULAR HEMOGLOBIN 30.4 PG (27.0-31.0); MEAN CORPUSCULAR HGB CONC 33.2 g/dL (33.0-36.5); MEAN CORPUSCULAR VOLUME 91.5 FL (78-98); MEAN PLATELET VOLUME 8.8 FL (7.4-10.4); MONOCYTES # (AUTO) 0.5 X10'3 (0-0.9); MONOCYTES % (AUTO) 6.1 % (2-12); NEUTROPHILS % (AUTO) 80.1 % (42-75); PLATELET COUNT 120 X10'3 (140-440); RED BLOOD COUNT 3.08 X10'6 (4.20-5.60); WHITE BLOOD COUNT 8.8 X10'3 (4.5-11.0)
[2021-09-21 03:31] LABS: ALANINE AMINOTRANSFERASE 28 U/L (12-78); ALBUMIN 2.7 G/DL (3.4-5.0); ALBUMIN/GLOBULIN RATIO 0.9 (1.1-1.5); ALKALINE PHOSPHATASE 41 IU/L (46-116); ANION GAP 10 (8-16); ASPARTATE AMINO TRANSFERASE 70 U/L (10-37); BILIRUBIN,TOTAL 0.5 MG/DL (0.1-1.0); BLOOD UREA NITROGEN 15 MG/DL (7-18); BUN/CREATININE RATIO 18.1 (6.6-38.0); CALCIUM 7.7 MG/DL (8.5-10.1); CHLORIDE 111 MMOL/L (99-107); CREATININE 0.83 MG/DL (0.40-0.90); GLUCOSE 180 MG/DL (70-104); MAGNESIUM 1.8 MG/DL (1.5-2.4); POTASSIUM 3.7 MMOL/L (3.5-5.1); SODIUM 146 MMOL/L (135-145); TOTAL CARBON DIOXIDE 25.3 MMOL/L (24-32); TOTAL PROTEIN 5.7 G/DL (6.4-8.2); eGFR 70 ML/MIN
[2021-09-21] MEDS: ringers solution, lacted 1,000 ML IV SCH ×2 (05:16→18:06)
[2021-09-21] MEDS: insulin Lispro (HumaLOG) vial - multi-dose SQ SCH ×2 (08:42→19:17)
[2021-09-21] MEDS: gabapentin 300mg capsule PO SCH ×2 (09:13→19:20)
--- NOTE | 2021-09-21 13:57 | NUR ---
Wound care received low Vikram Score alert. Per primary RN, patient is not stable to turn for skin assessment at this time, but states that skin is intact. Wound care to f/u when patient is more stable.
[2021-09-21] MEDS: ondansetron/PF 4mg/2ml inj IV PRN (14:42)
--- NOTE | 2021-09-21 18:30 | NUR ---
Received pt sitting at the edge of bed, AAOx4 in no distress. Pt is on pain medication every 10 minutes as needed via CAD and maintenance fluid. Right chest tube to suction positive patency noted , Quinones off the floor to gravity with clear yellow urine. Pain management in progress, encouraged pt to use the medication before the pain is unbearable. Pt verbalized understanding,
[2021-09-21] MEDS: lactobacillus rhamnosus 10,000 MMU CELLS/CAPSULE PO SCH (19:19)
[2021-09-21] MEDS: CADD PCA waste documentation MC PRN (20:42)
[2021-09-21] MEDS: insulin glargine (Lantus) pen - multi-dose SQ SCH (20:52)
[2021-09-22] VITALS (18 sets, daily range): BP systolic 89–159; BP diastolic 43–91
[2021-09-22] MEDS: CLINDAMYCIN/D5W 900mg/50ml 50 ML IV SCH ×3 (00:29→16:28)
[2021-09-22] MEDS: HYDROmorph./NS 0.2 mg/ml CADD 100 ML IV SCH ×12 (01:00→23:00)
[2021-09-22] MEDS: ipratropium/albuterol 3ml nebule NEB SCH ×4 (01:52→19:52)
[2021-09-22] MEDS: mineral oil/petrolatum ophthal oint EACHEYE SCH ×4 (02:00→19:47)
[2021-09-22] MEDS: ketorolac trometh. 30mg/ml inj. IM SCH ×4 (02:17→21:28)
--- NOTE | 2021-09-22 02:17 | NUR ---
Pt sleeping post evening bed bath, chest tube dressing change done. IV fluid infusing well. Call light and CAD button placed within reach. Report given.
[2021-09-22 03:37] LABS: ALANINE AMINOTRANSFERASE 36 U/L (12-78); ALBUMIN 2.3 G/DL (3.4-5.0); ALBUMIN/GLOBULIN RATIO 0.8 (1.1-1.5); ALKALINE PHOSPHATASE 45 IU/L (46-116); ANION GAP 7 (8-16); ASPARTATE AMINO TRANSFERASE 66 U/L (10-37); BILIRUBIN,TOTAL 0.5 MG/DL (0.1-1.0); BLOOD UREA NITROGEN 10 MG/DL (7-18); BUN/CREATININE RATIO 12.2 (6.6-38.0); CALCIUM 8.2 MG/DL (8.5-10.1); CHLORIDE 108 MMOL/L (99-107); CREATININE 0.82 MG/DL (0.40-0.90); GLUCOSE 115 MG/DL (70-104); MAGNESIUM 1.8 MG/DL (1.5-2.4); POTASSIUM 3.6 MMOL/L (3.5-5.1); SODIUM 142 MMOL/L (135-145); TOTAL CARBON DIOXIDE 27.5 MMOL/L (24-32); TOTAL PROTEIN 5.3 G/DL (6.4-8.2); eGFR 71 ML/MIN
--- NOTE | 2021-09-22 06:28 | NUR ---
Patient in room ICU 2044. I have received report from Aysha HELLER and had the opportunity to ask questions and assume patient care.
[2021-09-22] MEDS: ringers solution, lacted 1,000 ML IV SCH (07:20)
[2021-09-22] MEDS: gabapentin 300mg capsule PO SCH ×2 (08:13→21:29)
[2021-09-22] MEDS: lactobacillus rhamnosus 10,000 MMU CELLS/CAPSULE PO SCH ×2 (08:13→21:29)
[2021-09-22 08:23] LABS: BASOPHILS % (AUTO) 0.4 % (0-1); EOSINOPHILS # (AUTO) 0.2 X10'3 (0-0.9); EOSINOPHILS % (AUTO) 3.3 % (0-6); HEMATOCRIT 26.6 % (35.0-45.0); LYMPHOCYTES # (AUTO) 1.3 X10'3 (1.1-4.8); LYMPHOCYTES % (AUTO) 18.3 % (21-51); MEAN CORPUSCULAR HEMOGLOBIN 30.7 PG (27.0-31.0); MEAN CORPUSCULAR HGB CONC 33.7 g/dL (33.0-36.5); MEAN CORPUSCULAR VOLUME 91.1 FL (78-98); MONOCYTES # (AUTO) 0.7 X10'3 (0-0.9); MONOCYTES % (AUTO) 9.1 % (2-12); NEUTROPHILS % (AUTO) 68.9 % (42-75); PLATELET COUNT 113 X10'3 (140-440); RED BLOOD COUNT 2.92 X10'6 (4.20-5.60); WHITE BLOOD COUNT 7.2 X10'3 (4.5-11.0)
[2021-09-22] MEDS: insulin Lispro (HumaLOG) vial - multi-dose SQ SCH ×3 (08:51→20:00)
[2021-09-22] MEDS: normal saline 1000ml 1,000 ML IV SCH ×2 (11:30→19:00)
--- NOTE | 2021-09-22 12:00 | NUR ---
Patient up to chair
--- NOTE | 2021-09-22 12:30 | NUR ---
Patient up walking with Physical Therapy
--- NOTE | 2021-09-22 16:44 | NUR ---
PAged PICC RN rm 0111 Hubert Gibbons need an PIV or extended PIV, multiple nurses have tried. Needs help. Thank you Taryn
--- NOTE | 2021-09-22 17:25 | NUR ---
Problems reprioritized. Patient report given, questions answered & plan of care reviewed with Kelly HELLER.
--- NOTE | 2021-09-22 18:36 | NUR ---
Problems reprioritized. Patient report given, questions answered & plan of care reviewed with Vanita Waldron RN.
--- NOTE | 2021-09-22 18:40 | NUR ---
Patient in room PCU 3021. I have received report from GELACIO HELLER and had the opportunity to ask questions and assume patient care.
[2021-09-22] MEDS: insulin glargine (Lantus) pen - multi-dose SQ SCH (21:46)
[2021-09-23] MEDS: CLINDAMYCIN/D5W 900mg/50ml 50 ML IV SCH (00:06)
[2021-09-23] MEDS: HYDROmorph./NS 0.2 mg/ml CADD 100 ML IV SCH ×4 (01:00→07:00)
[2021-09-23 02:00] VITALS: BP 129/55
[2021-09-23] MEDS: ketorolac trometh. 30mg/ml inj. IM SCH ×2 (02:00→08:44)
[2021-09-23] MEDS: mineral oil/petrolatum ophthal oint EACHEYE SCH ×4 (02:00→20:00)
[2021-09-23] MEDS: ipratropium/albuterol 3ml nebule NEB SCH ×4 (03:30→20:56)
[2021-09-23 06:00] VITALS: BP 99/62
--- NOTE | 2021-09-23 06:24 | NUR ---
Problems reprioritized. Patient report given, questions answered & plan of care reviewed with GELACIO HELLER.
[2021-09-23 08:09] LABS: ALANINE AMINOTRANSFERASE 32 U/L (12-78); ALBUMIN 2.3 G/DL (3.4-5.0); ALBUMIN/GLOBULIN RATIO 0.7 (1.1-1.5); ALKALINE PHOSPHATASE 48 IU/L (46-116); ANION GAP 6 (8-16); ASPARTATE AMINO TRANSFERASE 51 U/L (10-37); BILIRUBIN,TOTAL 0.5 MG/DL (0.1-1.0); BLOOD UREA NITROGEN 11 MG/DL (7-18); BUN/CREATININE RATIO 12.1 (6.6-38.0); CALCIUM 8.3 MG/DL (8.5-10.1); CHLORIDE 107 MMOL/L (99-107); CREATININE 0.91 MG/DL (0.40-0.90); GLUCOSE 107 MG/DL (70-104); POTASSIUM 3.5 MMOL/L (3.5-5.1); SODIUM 141 MMOL/L (135-145); TOTAL CARBON DIOXIDE 27.7 MMOL/L (24-32); TOTAL PROTEIN 5.5 G/DL (6.4-8.2); eGFR 63 ML/MIN
[2021-09-23] MEDS: gabapentin 300mg capsule PO SCH ×2 (08:44→21:12)
[2021-09-23] MEDS: lactobacillus rhamnosus 10,000 MMU CELLS/CAPSULE PO SCH ×2 (08:44→20:00)
[2021-09-23 09:55] LABS: BASOPHILS % (AUTO) 0.6 % (0-1); EOSINOPHILS # (AUTO) 0.3 X10'3 (0-0.9); EOSINOPHILS % (AUTO) 4.6 % (0-6); HEMATOCRIT 27.4 % (35.0-45.0); HEMOGLOBIN 9.4 g/dl (12.0-16.0); LYMPHOCYTES # (AUTO) 0.8 X10'3 (1.1-4.8); LYMPHOCYTES % (AUTO) 14.6 % (21-51); MEAN CORPUSCULAR HEMOGLOBIN 30.8 PG (27.0-31.0); MEAN CORPUSCULAR HGB CONC 34.3 g/dL (33.0-36.5); MEAN CORPUSCULAR VOLUME 89.7 FL (78-98); MEAN PLATELET VOLUME 8.7 FL (7.4-10.4); MONOCYTES # (AUTO) 0.4 X10'3 (0-0.9); MONOCYTES % (AUTO) 6.3 % (2-12); NEUTROPHILS # (AUTO) 4.2 X10'3 (1.8-7.7); NEUTROPHILS % (AUTO) 73.9 % (42-75); PLATELET COUNT 139 X10'3 (140-440); RED BLOOD COUNT 3.06 X10'6 (4.20-5.60); RED CELL DISTRIBUTION WIDTH 14.5 % (11.5-14.5); WHITE BLOOD COUNT 5.7 X10'3 (4.5-11.0)
[2021-09-23 11:00] VITALS: BP 100/66
--- NOTE | 2021-09-23 12:45 | NUR ---
Pts 1245 blood sugar was taken after patient had already eaten at least 75% of her meal.
[2021-09-23] MEDS ORDERED: potassium Cl 20 mEq SR tablet PO PRN ×2 (13:50)
[2021-09-23] MEDS ORDERED: potassium Cl 40MEQ/1/2NS 520ml 520 ML IV PRN (13:50)
[2021-09-23] MEDS ORDERED: magnesium 2GM in 50ml NS 50 ML IV PRN (13:50)
[2021-09-23] MEDS ORDERED: magnesium Cl slow-release 64mg tablet PO PRN (13:50)
[2021-09-23] MEDS ORDERED: magnesium 4gm in 100ml NS 100 ML IV PRN (13:50)
[2021-09-23] MEDS ORDERED: CADD PCA waste documentation MC PRN (14:15)
[2021-09-23] MEDS: CADD PCA waste documentation MC PRN (14:17)
--- NOTE | 2021-09-23 14:18 | NUR ---
Cadd Q2H checks Time VOL given vs attemptsmg given 0700 63 vol 3.20mg given 0900 59 vol 4.0 mg 1100 58 4.20 1300 55 4.8 1356 53 5.2 mg given
[2021-09-23 15:00] VITALS: BP 95/54
[2021-09-23] MEDS: magnesium oxide 400mg tablet PO SCH ×2 (16:22→23:18)
--- NOTE | 2021-09-23 16:27 | NUR ---
Reassessment: Patient's diet slowly advanced post extubation to CHO controlled. Pt documented with 25-50% PO intake first meal on solid diet up to 100% at second meal, pending documentation of PO intake for today. Attempted visit with pt at bedside for DM education however pt sleeping and did not wake with verbal cues. Written DM education with RD contact information left at patient's bedside. Will f/u at another time to attempt verbal education. Noted no documented BM since admit, pt started on routine MoM today. Will continue to follow. Recs: 1. Continue CHO controlled diet 2. Monitor need for ONS; may benefit from vanilla Bernardino shake BIDLD for wound healing 3. Routine bowel care 4. Weekly scaled weights 5. F/u verbal DM education; A1c 8.7% up from 7.4% 07/22 per EMR Addendum: 09/23/21 at [address] Amended: Links added.
[2021-09-23] MEDS: HYDROcodone/acetaminophen 10/325mg tab PO PRN ×2 (17:26→21:13)
[2021-09-23 18:00] VITALS: BP 143/78
--- NOTE | 2021-09-23 18:32 | NUR ---
Problems reprioritized. Patient report given, questions answered & plan of care reviewed with ARRON Rodney.
[2021-09-23] MEDS: enoxaparin 40mg/0.4ml syringe SUBCUT SCH (20:00)
[2021-09-23] MEDS: K and/or MAG REPLACEMENT MC SCH (20:00)
[2021-09-23] MEDS: insulin Lispro (HumaLOG) vial - multi-dose SQ SCH (21:25)
[2021-09-23] MEDS: insulin glargine (Lantus) pen - multi-dose SQ SCH (21:27)
[2021-09-23] MEDS: magnesium hydroxide 30ml (MOM) UD suspension PO SCH (21:28)
--- NOTE | 2021-09-23 21:30 | NUR ---
patient refused milk of magnesia stating that she is has had 2 BM for the day. She will take the next scheduled one.
[2021-09-23 22:00] VITALS: BP 143/91
[2021-09-23] MEDS: traMADol 50MG tablet PO PRN (23:11)
[2021-09-23] MEDS: LORazepam 2 mg/ml vial IV PRN (23:11)
[2021-09-23] MEDS: nicotine 14mg patch - 24hr TD SCH (23:12)
[2021-09-24] MEDS: mineral oil/petrolatum ophthal oint EACHEYE SCH ×4 (01:48→20:00)
[2021-09-24] MEDS: ketorolac tromethamine 15mg/ml inj. IM SCH ×4 (01:48→19:17)
[2021-09-24 01:58] VITALS: BP 135/87
[2021-09-24] MEDS: ipratropium/albuterol 3ml nebule NEB SCH ×4 (03:00→20:58)
[2021-09-24 06:00] VITALS: BP 144/76
--- NOTE | 2021-09-24 06:20 | NUR ---
Problems reprioritized. Patient report given, questions answered & plan of care reviewed with ARRON Hairston.
--- NOTE | 2021-09-24 06:58 | NUR ---
Patient in room PCU 3021. I have received report from ARRON RUDD, and had the opportunity to ask questions and assume patient care.
[2021-09-24] MEDS: magnesium oxide 400mg tablet PO SCH ×2 (07:37→16:19)
[2021-09-24] MEDS: lactobacillus rhamnosus 10,000 MMU CELLS/CAPSULE PO SCH ×2 (07:37→19:17)
[2021-09-24] MEDS: gabapentin 300mg capsule PO SCH ×2 (07:38→19:16)
[2021-09-24] MEDS: magnesium hydroxide 30ml (MOM) UD suspension PO SCH ×2 (07:39→19:41)
[2021-09-24] MEDS: K and/or MAG REPLACEMENT MC SCH ×2 (08:00→19:40)
[2021-09-24] MEDS: insulin Lispro (HumaLOG) vial - multi-dose SQ SCH ×3 (09:20→19:36)
[2021-09-24] MEDS: HYDROcodone/acetaminophen 10/325mg tab PO PRN ×2 (09:25→20:31)
[2021-09-24 11:00] VITALS: BP 119/75
[2021-09-24 15:00] VITALS: BP 150/65
[2021-09-24 18:00] VITALS: BP 162/59
[2021-09-24] MEDS: normal saline 1000ml 1,000 ML IV SCH (18:21)
[2021-09-24] MEDS: nicotine 14mg patch - 24hr TD SCH (19:15)
[2021-09-24] MEDS: enoxaparin 40mg/0.4ml syringe SUBCUT SCH (19:17)
--- NOTE | 2021-09-24 19:49 | NUR ---
Problems reprioritized. Patient report given, questions answered & plan of care reviewed with ARRON RUDD.
[2021-09-24] MEDS: insulin glargine (Lantus) pen - multi-dose SQ SCH (21:37)
[2021-09-24] MEDS: traMADol 50MG tablet PO PRN (21:45)
[2021-09-24 22:00] VITALS: BP_SYST 101; BP_SYST 142; BP_DIAS 64; BP_DIAS 71
[2021-09-25] VITALS (8 sets, daily range): BP systolic 89–177; BP diastolic 48–92
[2021-09-25] MEDS: LORazepam 2 mg/ml vial IV PRN ×2 (00:18→05:53)
[2021-09-25] MEDS: magnesium oxide 400mg tablet PO SCH ×4 (00:18→23:42)
[2021-09-25] MEDS: mineral oil/petrolatum ophthal oint EACHEYE SCH ×4 (02:00→20:00)
[2021-09-25] MEDS: ketorolac tromethamine 15mg/ml inj. IM SCH ×4 (02:40→19:14)
--- NOTE | 2021-09-25 03:00 | NUR ---
HOSPITALIST TIKA HENDRIX PAGED ABOUT PATIENT HTN. PATIENT IS CURRENTLY STABLE. REPORTED PAIN THAT WAS ADDRESSED. ALL SAFETY IN PLACE. WILL CONTINUE MONITOR PATIENT.
--- NOTE | 2021-09-25 03:03 | NUR ---
TIKA HENDRIX CALL BACK. ORDER FOR HYDRALIZINE 5MG IV GIVEN.
[2021-09-25] MEDS ORDERED: hydrALAZINE 20mg/ml inj. IV PRN (03:05)
[2021-09-25] MEDS: HYDROcodone/acetaminophen 10/325mg tab PO PRN ×2 (03:20→23:42)
[2021-09-25] MEDS: ipratropium/albuterol 3ml nebule NEB SCH ×4 (03:33→20:33)
--- NOTE | 2021-09-25 06:50 | NUR ---
Patient in room PCU 3021. I have received report from ARRON RUDD, and had the opportunity to ask questions and assume patient care.
[2021-09-25] MEDS: K and/or MAG REPLACEMENT MC SCH ×2 (08:00→20:00)
[2021-09-25] MEDS: magnesium hydroxide 30ml (MOM) UD suspension PO SCH ×2 (08:01→19:11)
[2021-09-25] MEDS: nicotine 14mg patch - 24hr TD SCH (08:05)
[2021-09-25] MEDS: gabapentin 300mg capsule PO SCH ×2 (08:05→19:11)
[2021-09-25] MEDS: lactobacillus rhamnosus 10,000 MMU CELLS/CAPSULE PO SCH ×2 (08:05→19:11)
[2021-09-25] MEDS: insulin Lispro (HumaLOG) vial - multi-dose SQ SCH ×3 (10:01→19:10)
--- NOTE | 2021-09-25 18:30 | NUR ---
Patient in room PCU 3021. I have received report from ARRON Hairston and had the opportunity to ask questions and assume patient care. Pt up to [facility] voided [facility] Addendum: 09/25/21 at 1928 by Glen Vazquez RN Amended: Links added.
--- NOTE | 2021-09-25 18:41 | NUR ---
Problems reprioritized. Patient report given, questions answered & plan of care reviewed with ARRON RIOS.
[2021-09-25] MEDS: enoxaparin 40mg/0.4ml syringe SUBCUT SCH (19:14)
[2021-09-25] MEDS: insulin glargine (Lantus) pen - multi-dose SQ SCH (22:34)
[2021-09-26] MEDS: normal saline 1000ml 1,000 ML IV SCH (00:10)
[2021-09-26] MEDS: mineral oil/petrolatum ophthal oint EACHEYE SCH ×4 (02:00→20:00)
[2021-09-26] MEDS: ketorolac tromethamine 15mg/ml inj. IM SCH ×4 (02:08→20:57)
[2021-09-26 02:16] VITALS: BP 145/80
[2021-09-26] MEDS: ipratropium/albuterol 3ml nebule NEB SCH ×4 (03:01→20:57)
[2021-09-26] MEDS: HYDROcodone/acetaminophen 10/325mg tab PO PRN (04:44)
--- NOTE | 2021-09-26 05:14 | NUR ---
ANALY PAVON CT MORE SEROUS LIGHT PINK. AMB NO SOB Addendum: 09/26/21 at 0515 by Glen Vazquez RN Amended: Links added.
[2021-09-26 06:00] VITALS: BP 140/76
--- NOTE | 2021-09-26 06:18 | NUR ---
Problems reprioritized. Patient report given, questions answered & plan of care reviewed with ARRON LANDERS. Addendum: 09/26/21 at 0618 by Glen Vazquez RN Amended: Links added.
--- NOTE | 2021-09-26 06:31 | NUR ---
Patient in room PCU 3021. I have received report from ARRON VILLARREAL, and had the opportunity to ask questions and assume patient care.
[2021-09-26] MEDS: magnesium hydroxide 30ml (MOM) UD suspension PO SCH ×2 (07:26→20:00)
[2021-09-26] MEDS: gabapentin 300mg capsule PO SCH ×2 (07:27→20:57)
[2021-09-26] MEDS: lactobacillus rhamnosus 10,000 MMU CELLS/CAPSULE PO SCH ×2 (07:27→20:57)
[2021-09-26] MEDS: magnesium oxide 400mg tablet PO SCH ×2 (07:27→17:09)
[2021-09-26] MEDS: nicotine 14mg patch - 24hr TD SCH (07:27)
[2021-09-26] MEDS: K and/or MAG REPLACEMENT MC SCH ×2 (08:00→20:00)
[2021-09-26] MEDS: insulin Lispro (HumaLOG) vial - multi-dose SQ SCH ×2 (08:52→14:24)
[2021-09-26] MEDS ORDERED: morphine 2 MG/ML inj. syringe IV PRN (09:15)
--- NOTE | 2021-09-26 09:18 | NUR ---
RECEIVED ORDER FOR MORPHINE 2MG IV Q 4HR PRN FOR MODERATE TO SEVERE PAIN. ASSESSED PT FOR PAIN, PT REPORTED 3/10 PAIN, AND REFUSED OFFERED MEDICATION. PT EDUCATED ON THE IMPORTANCE OF PAIN CONTROL, AND DEEP BREATHS. PT USES IS AND FLUTTER VALVE AND VERBALIZED UNDERSTANDING. PT AGREED TO REPORT PAIN OF 4 TO KEEP PAIN IN CONTROL. ORDER FOR MORPHINE ENTERED.
[2021-09-26 11:00] VITALS: BP 107/73
[2021-09-26 15:00] VITALS: BP 113/54
[2021-09-26] MEDS: ondansetron/PF 4mg/2ml inj IV PRN (15:08)
[2021-09-26 18:00] VITALS: BP 114/63
--- NOTE | 2021-09-26 18:18 | NUR ---
Problems reprioritized. Patient report given, questions answered & plan of care reviewed with ARRON RUDD.
[2021-09-26] MEDS: LORazepam 2 mg/ml vial IV PRN (20:57)
[2021-09-26] MEDS: enoxaparin 40mg/0.4ml syringe SUBCUT SCH (20:58)
[2021-09-26] MEDS: insulin glargine (Lantus) pen - multi-dose SQ SCH (21:19)
[2021-09-26 22:00] VITALS: BP 86/43
[2021-09-27 02:00] VITALS: BP 94/44
[2021-09-27] MEDS: mineral oil/petrolatum ophthal oint EACHEYE SCH ×4 (02:00→20:00)
[2021-09-27] MEDS: magnesium oxide 400mg tablet PO SCH (02:06)
[2021-09-27] MEDS: HYDROcodone/acetaminophen 10/325mg tab PO PRN ×4 (02:06→20:58)
[2021-09-27] MEDS: ketorolac tromethamine 15mg/ml inj. IM SCH (02:29)
[2021-09-27] MEDS: LORazepam 2 mg/ml vial IV PRN (02:31)
[2021-09-27] MEDS: ipratropium/albuterol 3ml nebule NEB SCH ×4 (03:00→20:58)
--- NOTE | 2021-09-27 06:20 | NUR ---
Took report from Hina HELLER and assumed care
--- NOTE | 2021-09-27 06:34 | NUR ---
patient 's daughter Julieth called floor to be updated about mother's status and voices concerns about her mother being discharged home today. Per patient daughter Julieth, patient is anxious because Dr. Muro told patient will be discharged home today. Patient daughter would like to speak with case management, nurse and/or daughter to request to extend patient stay because she got expose to covid from her daughter. Julieth also states that she can not take of her mother and her mother can not take care of herself for now. Message and phone handed to ARRON Santamaria to call daughter to update about patient status. She would to get a call back at [phone].
[2021-09-27 07:00] VITALS: BP 104/56
[2021-09-27 07:12] LABS: MAGNESIUM 2.8 MG/DL (1.5-2.4)
[2021-09-27] MEDS: K and/or MAG REPLACEMENT MC SCH ×2 (08:00→18:31)
[2021-09-27 08:32] LABS: ALANINE AMINOTRANSFERASE 25 U/L (12-78); ALBUMIN 2.2 G/DL (3.4-5.0); ALBUMIN/GLOBULIN RATIO 0.7 (1.1-1.5); ALKALINE PHOSPHATASE 43 IU/L (46-116); ANION GAP 8 (8-16); ASPARTATE AMINO TRANSFERASE 20 U/L (10-37); BILIRUBIN,TOTAL 0.3 MG/DL (0.1-1.0); BLOOD UREA NITROGEN 16 MG/DL (7-18); BUN/CREATININE RATIO 15.2 (6.6-38.0); CHLORIDE 106 MMOL/L (99-107); CREATININE 1.05 MG/DL (0.40-0.90); GLUCOSE 132 MG/DL (70-104); POTASSIUM 4.5 MMOL/L (3.5-5.1); SODIUM 141 MMOL/L (135-145); TOTAL CARBON DIOXIDE 26.6 MMOL/L (24-32); TOTAL PROTEIN 5.4 G/DL (6.4-8.2); eGFR 53 ML/MIN
[2021-09-27] MEDS: nicotine 14mg patch - 24hr TD SCH (08:41)
[2021-09-27] MEDS: lactobacillus rhamnosus 10,000 MMU CELLS/CAPSULE PO SCH ×2 (08:42→20:58)
[2021-09-27] MEDS: gabapentin 300mg capsule PO SCH ×2 (08:43→20:58)
[2021-09-27] MEDS: insulin Lispro (HumaLOG) vial - multi-dose SQ SCH ×2 (08:59→15:38)
[2021-09-27 11:00] VITALS: BP 124/70
[2021-09-27] MEDS ORDERED: LORazepam 2 mg/ml vial IV PRN (11:05)
[2021-09-27] MEDS: LORazepam 0.5 MG tablet PO PRN (11:31)
--- NOTE | 2021-09-27 11:57 | NUR ---
Problems reprioritized. Patient report given, questions answered & plan of care reviewed with Pat RN.
--- NOTE | 2021-09-27 13:15 | NUR ---
Student documentation: I have reviewed and agree with all interventions, assessments performed and documented by Will, nursing education specialist.
--- NOTE | 2021-09-27 13:15 | NUR ---
Student Medication Administration: For this medication-pass time frame, all medication were reviewed, dispensed, administered and documented per hospital policy by Will, doctor of nursing practice.
--- NOTE | 2021-09-27 16:21 | NUR ---
Pt given insulin and pain med.(norco) at 15:30. Daughter is at bedside. call light within reach and bed down and locked. Pt is sitting in chair.
[2021-09-27 17:58] VITALS: BP 79/56
[2021-09-27 18:00] VITALS: BP 111/66
[2021-09-27] MEDS: enoxaparin 40mg/0.4ml syringe SUBCUT SCH (21:03)
[2021-09-27 22:00] VITALS: BP 119/44
[2021-09-27] MEDS: insulin glargine (Lantus) pen - multi-dose SQ SCH (23:17)
[2021-09-28] MEDS: HYDROcodone/acetaminophen 10/325mg tab PO PRN ×4 (00:50→16:52)
[2021-09-28 02:00] VITALS: BP 87/46
[2021-09-28] MEDS: mineral oil/petrolatum ophthal oint EACHEYE SCH ×3 (02:00→14:00)
[2021-09-28] MEDS: ipratropium/albuterol 3ml nebule NEB SCH ×2 (02:30→09:00)
--- NOTE | 2021-09-28 05:53 | NUR ---
Ms. Gaspar would like to speak to the casework specialist about discharge.
[2021-09-28 06:51] LABS: BASOPHILS # (AUTO) 0.1 X10'3 (0-0.2); BASOPHILS % (AUTO) 0.7 % (0-1); EOSINOPHILS # (AUTO) 0.4 X10'3 (0-0.9); EOSINOPHILS % (AUTO) 5.9 % (0-6); HEMATOCRIT 31.7 % (35.0-45.0); HEMOGLOBIN 10.7 g/dl (12.0-16.0); LYMPHOCYTES # (AUTO) 1.6 X10'3 (1.1-4.8); LYMPHOCYTES % (AUTO) 20.9 % (21-51); MEAN CORPUSCULAR HEMOGLOBIN 30.2 PG (27.0-31.0); MEAN CORPUSCULAR HGB CONC 33.6 g/dL (33.0-36.5); MEAN CORPUSCULAR VOLUME 89.7 FL (78-98); MEAN PLATELET VOLUME 7.5 FL (7.4-10.4); MONOCYTES # (AUTO) 0.6 X10'3 (0-0.9); MONOCYTES % (AUTO) 8.3 % (2-12); NEUTROPHILS # (AUTO) 4.8 X10'3 (1.8-7.7); NEUTROPHILS % (AUTO) 64.2 % (42-75); PLATELET COUNT 203 X10'3 (140-440); RED BLOOD COUNT 3.53 X10'6 (4.20-5.60); RED CELL DISTRIBUTION WIDTH 15.4 % (11.5-14.5); WHITE BLOOD COUNT 7.5 X10'3 (4.5-11.0)
[2021-09-28 06:56] VITALS: BP 91/46
[2021-09-28 07:36] LABS: % IRON SATURATION 12 % (11-46); ALANINE AMINOTRANSFERASE 29 U/L (12-78); ALBUMIN 2.4 G/DL (3.4-5.0); ALBUMIN/GLOBULIN RATIO 0.7 (1.1-1.5); ALKALINE PHOSPHATASE 50 IU/L (46-116); ANION GAP 5 (8-16); ASPARTATE AMINO TRANSFERASE 20 U/L (10-37); BILIRUBIN,TOTAL 0.4 MG/DL (0.1-1.0); BLOOD UREA NITROGEN 18 MG/DL (7-18); BUN/CREATININE RATIO 17.8 (6.6-38.0); CALCIUM 8.4 MG/DL (8.5-10.1); CHLORIDE 103 MMOL/L (99-107); CREATININE 1.01 MG/DL (0.40-0.90); GLUCOSE 164 MG/DL (70-104); IRON 23 UG/DL (49-151); MAGNESIUM 2.6 MG/DL (1.5-2.4); POTASSIUM 4.3 MMOL/L (3.5-5.1); SODIUM 136 MMOL/L (135-145); TOTAL CARBON DIOXIDE 27.9 MMOL/L (24-32); TOTAL IRON BINDING CAPACITY 196 UG/DL (259-388); eGFR 56 ML/MIN
[2021-09-28] MEDS: K and/or MAG REPLACEMENT MC SCH (08:31)
[2021-09-28] MEDS: lactobacillus rhamnosus 10,000 MMU CELLS/CAPSULE PO SCH (08:33)
[2021-09-28] MEDS: gabapentin 300mg capsule PO SCH (08:34)
[2021-09-28] MEDS: nicotine 14mg patch - 24hr TD SCH (08:34)
[2021-09-28] MEDS: insulin Lispro (HumaLOG) vial - multi-dose SQ SCH (09:54)
[2021-09-28 11:00] VITALS: BP 129/79
--- NOTE | 2021-09-28 11:36 | NUR ---
Reassessment:Pt's PO intake has improved, now ~75-100% of meals on MALCOL[place] diet meeting needs, though pt noted to have refused dinner last night. Provided pt w/ f/u verbal DM education, pt receptive of information, states she's ready to make changes. LB 09/27. Will continue to monitor and make recommendations as appropriate. Recs: 1. Continue CHO controlled diet 2. Monitor need for ONS; may benefit from vanilla Bernardino shake BIDLD for wound healing 3. Routine bowel care 4. Weekly scaled weights Addendum: 09/28/21 at [address] Amended: Links added.
[2021-09-28] MEDS: LORazepam 0.5 MG tablet PO PRN (12:11)
[2021-09-28] MEDS ORDERED: iron sucrose complex injection 200 MG in normal saline 100ml IV soln 100 ML IV SCH (12:27)
[2021-09-28] MEDS ORDERED: iron sucrose complex injection 200 MG in normal saline 100ml IV soln 90 ML IV SCH (12:28)
[2021-09-28] MEDS ORDERED: NICO-631 TD (12:32)
[2021-09-28] MEDS ORDERED: HYDR-3965 PO (12:32)
== END 2021-09-28 17:17 | disposition home health service (06) | DRG 120 ==
LOC: PAS IN 09-19 07:17 → ICU 2S 09-19 19:51 → PCU 3S 09-22 18:00
PROVIDERS: ADMIT Surgery; ATTEND Surgery
PROC: 0BTG0ZZ Resection of Left Upper Lung Lobe, Open Approach (ICD-10-PCS; 2021-09-19)
PROC: 07B74ZX Excision of Thorax Lymphatic, Percutaneous Endoscopic Approach, Diagnostic (ICD-10-PCS; 2021-09-19)
PROC: 0BJ08ZZ Inspection of Tracheobronchial Tree, Via Natural or Artificial Opening Endoscopic (ICD-10-PCS; 2021-09-19)
PROC: 8E0W4CZ Robotic Assisted Procedure of Trunk Region, Percutaneous Endoscopic Approach (ICD-10-PCS; 2021-09-19)
PROC: 0W9B00Z Drainage of Left Pleural Cavity with Drainage Device, Open Approach (ICD-10-PCS; 2021-09-19)
PROC: BW241ZZ Computerized Tomography (CT Scan) of Chest and Abdomen using Low Osmolar Contrast (ICD-10-PCS; 2021-09-19)
PROC: 0BQB0ZZ Repair Left Lower Lobe Bronchus, Open Approach (ICD-10-PCS; principal; 2021-09-19 10:18)
DX: C34.12 Malignant neoplasm of upper lobe, left bronchus or lung (principal); J96.00 Acute respiratory failure, unspecified whether with hypoxia or hypercapnia; E11.9 Type 2 diabetes mellitus without complications; F17.210 Nicotine dependence, cigarettes, uncomplicated; F41.9 Anxiety disorder, unspecified; D50.9 Iron deficiency anemia, unspecified; I50.9 Heart failure, unspecified; I11.0 Hypertensive heart disease with heart failure; Z79.84 Long term (current) use of oral hypoglycemic drugs; Z87.440 Personal history of urinary (tract) infections; Z90.710 Acquired absence of both cervix and uterus; Z88.0 Allergy status to penicillin; Z88.2 Allergy status to sulfonamides; Z88.8 Allergy status to other drugs, medicaments and biological substances; Z79.899 Other long term (current) drug therapy; Z79.82 Long term (current) use of aspirin; Z90.49 Acquired absence of other specified parts of digestive tract; Z71.6 Tobacco abuse counseling
CPT/HCPCS: 36415; 36600; 71045; 71046; 71260; 76937; 80053; 81001; 82803; 82948; 83036; 83540; 83550; 83735; 84100; 85018; 85025; 85610; 85730; 86885; 86900; 86901; 86920; 87070; 87081; 87088; 94002; 94003; 94640; 94668; 94760; 97110; 97116; 97161; 97530; A4618; A6258; A6449; A7000; A7048; C1758; C9250; C9290; G0378; J1170; J1650; J1756; J1815; J1885; J2001; J2060; J2250; J2270; J2405; J2704; J3010; J3490; J7030; J7040; J7120; P9045; Q9967; U0003; U0005

== ENCOUNTER 2021-10-25 10:31 | Emergency (ER) | payer MEDICAID ==
[~2021-10-25] VITALS: Ht 165.1 cm; Wt 84.0 kg
[~2021-10-25 10:31] MED LIST changes: +HYDR-3965 PO; -LEVO500T90 PO; -LISI10TA27 PO; +NICO-631 TD
[2021-10-25 10:34] VITALS: BP 151/87
[2021-10-25 11:28] LABS: BASOPHILS # (AUTO) 0.1 X10'3 (0-0.2); BASOPHILS % (AUTO) 0.8 % (0-1); EOSINOPHILS # (AUTO) 0.3 X10'3 (0-0.9); EOSINOPHILS % (AUTO) 4.4 % (0-6); HEMATOCRIT 39.4 % (35.0-45.0); HEMOGLOBIN 13.3 g/dl (12.0-16.0); LYMPHOCYTES # (AUTO) 1.3 X10'3 (1.1-4.8); LYMPHOCYTES % (AUTO) 19.6 % (21-51); MEAN CORPUSCULAR HGB CONC 33.7 g/dL (33.0-36.5); MEAN CORPUSCULAR VOLUME 88.9 FL (78-98); MEAN PLATELET VOLUME 8.9 FL (7.4-10.4); MONOCYTES # (AUTO) 0.4 X10'3 (0-0.9); MONOCYTES % (AUTO) 5.8 % (2-12); NEUTROPHILS # (AUTO) 4.6 X10'3 (1.8-7.7); NEUTROPHILS % (AUTO) 69.4 % (42-75); PLATELET COUNT 160 X10'3 (140-440); RED BLOOD COUNT 4.43 X10'6 (4.20-5.60); RED CELL DISTRIBUTION WIDTH 14.7 % (11.5-14.5); WHITE BLOOD COUNT 6.6 X10'3 (4.5-11.0)
[2021-10-25 11:40] LABS: ALANINE AMINOTRANSFERASE 26 U/L (12-78); ALBUMIN 3.5 G/DL (3.4-5.0); ALBUMIN/GLOBULIN RATIO 0.9 (1.1-1.5); ALKALINE PHOSPHATASE 67 IU/L (46-116); ANION GAP 11 (8-16); ASPARTATE AMINO TRANSFERASE 13 U/L (10-37); BILIRUBIN,TOTAL 0.4 MG/DL (0.1-1.0); BLOOD UREA NITROGEN 21 MG/DL (7-18); BUN/CREATININE RATIO 22.8 (6.6-38.0); CALCIUM 9.2 MG/DL (8.5-10.1); CHLORIDE 102 MMOL/L (99-107); CREATININE 0.92 MG/DL (0.40-0.90); GLUCOSE 209 MG/DL (70-104); SODIUM 140 MMOL/L (135-145); TOTAL CARBON DIOXIDE 26.8 MMOL/L (24-32); TOTAL PROTEIN 7.2 G/DL (6.4-8.2); eGFR 62 ML/MIN
[2021-10-25] MEDS ORDERED: ondansetron 4mg rapidly disintigrating tab PO ONE (12:15)
[2021-10-25] MEDS ORDERED: oxyCODONE/APAP 5-325mg tablet PO ONE (12:15)
[2021-10-25] MEDS ORDERED: ONDA4TAB12 PO (13:22)
[2021-10-25] MEDS ORDERED: ketorolac trometh. 30mg/ml inj. IV ONE (13:30)
== END 2021-10-25 14:03 | disposition home or self-care (01) ==
LOC: ER 10:31
DX: R51.9 Headache, unspecified (principal); R11.0 Nausea; R42 Dizziness and giddiness; Z86.73 Personal history of transient ischemic attack (TIA), and cerebral infarction without residual deficits; Z87.442 Personal history of urinary calculi; Z87.440 Personal history of urinary (tract) infections; Z90.49 Acquired absence of other specified parts of digestive tract; Z90.710 Acquired absence of both cervix and uterus; Z98.890 Other specified postprocedural states; Z88.0 Allergy status to penicillin; Z88.2 Allergy status to sulfonamides; Z88.8 Allergy status to other drugs, medicaments and biological substances; Z79.82 Long term (current) use of aspirin; Z79.899 Other long term (current) drug therapy
CPT/HCPCS: 36415; 70450; 71045; 80053; 82948; 83880; 84484; 85025; 93005; 96374; 99285; J1885

== ENCOUNTER 2021-11-03 13:19 | Outpatient (CLI) | payer MEDICAID ==
[~2021-11-03 13:19] MED LIST changes: +ONDA4TAB12 PO
== END 2021-11-03 23:59 | disposition home or self-care (01) ==
LOC: VAS 13:19
PROVIDERS: ATTEND Surgery
DX: R22.1 Localized swelling, mass and lump, neck (principal)
CPT/HCPCS: 93971

== ENCOUNTER 2021-11-30 12:59 | Emergency (ER) | payer MEDICAID ==
[~2021-11-30] VITALS: Ht 167.6 cm; Wt 79.8 kg
[2021-11-30 13:25] VITALS: BP 121/85
[2021-11-30 14:02] LABS: BASOPHILS # (AUTO) 0.1 X10'3 (0-0.2); BASOPHILS % (AUTO) 0.8 % (0-1); EOSINOPHILS # (AUTO) 0.3 X10'3 (0-0.9); EOSINOPHILS % (AUTO) 3.5 % (0-6); HEMATOCRIT 43.6 % (35.0-45.0); HEMOGLOBIN 14.5 g/dl (12.0-16.0); LYMPHOCYTES # (AUTO) 1.7 X10'3 (1.1-4.8); LYMPHOCYTES % (AUTO) 22.9 % (21-51); MEAN CORPUSCULAR HEMOGLOBIN 29.1 PG (27.0-31.0); MEAN CORPUSCULAR HGB CONC 33.2 g/dL (33.0-36.5); MEAN CORPUSCULAR VOLUME 87.7 FL (78-98); MEAN PLATELET VOLUME 8.7 FL (7.4-10.4); MONOCYTES # (AUTO) 0.4 X10'3 (0-0.9); MONOCYTES % (AUTO) 5.4 % (2-12); NEUTROPHILS % (AUTO) 67.4 % (42-75); PLATELET COUNT 186 X10'3 (140-440); RED BLOOD COUNT 4.98 X10'6 (4.20-5.60); RED CELL DISTRIBUTION WIDTH 14.4 % (11.5-14.5); WHITE BLOOD COUNT 7.4 X10'3 (4.5-11.0)
[2021-11-30 14:15] LABS: ALBUMIN 3.7 G/DL (3.4-5.0); ALBUMIN/GLOBULIN RATIO 0.9 (1.1-1.5); ALKALINE PHOSPHATASE 77 IU/L (46-116); ANION GAP 9 (8-16); ASPARTATE AMINO TRANSFERASE 16 U/L (10-37); BILIRUBIN,TOTAL 0.2 MG/DL (0.1-1.0); BLOOD UREA NITROGEN 30 MG/DL (7-18); BUN/CREATININE RATIO 29.1 (6.6-38.0); CHLORIDE 105 MMOL/L (99-107); CREATININE 1.03 MG/DL (0.40-0.90); GLUCOSE 126 MG/DL (70-104); POTASSIUM 4.1 MMOL/L (3.5-5.1); SODIUM 141 MMOL/L (135-145); TOTAL CARBON DIOXIDE 26.7 MMOL/L (24-32); TOTAL PROTEIN 7.9 G/DL (6.4-8.2); eGFR 55 ML/MIN
[2021-11-30 14:23] LABS: ALANINE AMINOTRANSFERASE 22 U/L (12-78)
--- NOTE | 2021-11-30 15:27 | NUR ---
PT CAME TO REGISTRATION WINDOW AND TOLD GELACIO, SHE WAS LEAVING. TIRED OF WAITING.
== END 2021-11-30 15:25 | disposition left against medical advice (07) ==
LOC: ER 13:00
DX: R22.1 Localized swelling, mass and lump, neck (principal); Z53.21 Procedure and treatment not carried out due to patient leaving prior to being seen by health care provider
CPT/HCPCS: 36415; 80053; 85025

== ENCOUNTER → 2024-03-18 | Outpatient (CLI) | payer MEDICAID ==
[~2024-03-18] MED LIST changes: +BUPR-564 PO; -BUPR300T86 PO
== END | disposition home or self-care (01) ==
LOC: RAD 09:30
PROVIDERS: ATTEND Urology
DX: N20.0 Calculus of kidney (principal)
CPT/HCPCS: 74018

== ENCOUNTER 2025-04-23 09:34 | Outpatient (CLI) | payer MEDICAID ==
[~2025-04-23 09:34] MED LIST changes: +BUPR-480 PO; -BUPR-564 PO; +ONDA-243 PO; -ONDA4TAB12 PO
--- NOTE | 2025-04-23 16:45 | RADIOLOGY REPORT ---
Exam: CT CT ABDOMEN PELVIS History: CALCULUS OF KIDNEY Comparison Study: None Technique: Multidetector spiral CT of the abdomen and pelvis was performed from lung bases to pubic symphysis. Imaging was performed without IV contrast. Axial, coronal and sagittal multiplanar reform ats were obtained from the axial data set by the technologist. Radiation dose : Abdomen/Pelvis: CTDIvol 30 mGy, DLP 1549 mGy*cm. Findings: Evaluation of solid organs is limited due to lack of intravenous contrast use. Lung Bases: Mild scarring in the left lung base. Liver: The liver is normal in size. No focal lesions. Gallbladder and biliary Tree: Gallbladder is surgically absent. Spleen: Unremarkable Pancreas: The pancreas is grossly normal in appearance. Adrenal Glands: Unremarkable Kidneys: Several punctate right renal calculi. Multiple left renal calculi, largest measuring up to 5 mm. No hydronephrosis. Bladder: Grossly unremarkable for degree of distention. Bowel: The stomach is grossly normal in appearance. Small bowel and colon are normal in caliber and d istribution. Normal appendix is visualized in the right lower quadrant without findings of appendicit is. Ascites: Absent Lymphadenopathy: No mesenteric, retroperitoneal or periportal lymphadenopathy. Abdominal wall and Mesentery: Unremarkable. Vasculature: Calcified atherosclerotic disease. Pelvic Organs: The uterus is surgically absent. Musculoskeletal: Sclerotic lesion in the left femoral head likely a bone island. IMPRESSION: 1. No acute abdominal or pelvic findings. Bilateral nonobstructive renal calculi. Calcified atheroscl erotic disease. Mild scarring in the left lung base. Likely bone island in the left femoral head. Radiation optimization: All CT scans at this facility use at least one of these dose optimization dl hniques: Automated exposure control mA and/or kV adjustment per patient size (includes targeted exams where dose is matched to clinical indication) or iterative reconstruction. HS:Y
== END 2025-04-23 23:59 | disposition home or self-care (01) ==
LOC: RAD 09:34
PROVIDERS: ATTEND Family Medicine
DX: N20.0 Calculus of kidney (principal); J98.4 Other disorders of lung; I70.90 Unspecified atherosclerosis
CPT/HCPCS: 74176